=== PATIENT | male | born 1970 | race Caucasian/White ===

== ENCOUNTER 2017-04-01 14:34 | Outpatient (RCR) | payer BC ==
[~2017-04-01] VITALS: Ht 172.7 cm; Wt 95.9 kg
[~2017-04-01 14:34] MED LIST: AMARYL PO; AMITRIPTYLINE100 M3 PO; ASPIRIN E.C. 8181 MG PO; FLEXERIL 1010 MG/TAB PO; GLUCOPHAGE1000 MG PO; GLUCOPHAGE500 MG/TAB PO; LISINOPRIL5 MG PO; LYRICA 50MG CAP50 MG PO; METOCLOPRAMIDE10 M2 PO; NORCO 325 MG-51 TA1 PO; ZITHROMAX Z PA250 MG PO; ZYRTEC10 M3 PO
[2017-04-01] MEDS ORDERED: AMLODIPINE BESYL5 MG PO (15:30)
[2017-04-01] MEDS ORDERED: GLIMEPIRIDE4 MG PO (15:30)
[2017-04-01] MEDS ORDERED: TRULICITY1.5 MG/0.5 SC (15:31)
[2017-04-01] MEDS ORDERED: GABAPENTIN TAB600 MG PO (15:31)
[2017-04-01] MEDS ORDERED: VENLAFAXINE HCL75 M2 PO ×2 (15:31→15:33)
[2017-04-01] MEDS ORDERED: LANTUS PEN100 U/ML SQ (15:34)
[2017-04-01] MEDS ORDERED: GLUCOPHAGE PO (15:34)
[2017-04-01] MEDS ORDERED: FENOFIBRATE145 MG PO (15:34)
[2017-04-01] MEDS ORDERED: [UNRECOGNIZED DRUG - SUPPLY] MC (15:34)
[2017-04-01] MEDS ORDERED: CYMBALTA60 M1 PO (15:36)
[2017-04-01] MEDS ORDERED: LISINOPRIL10 MG PO (15:36)
[2017-04-01] MEDS ORDERED: AUGMENTIN 875-1 EAC1 PO (15:37)
[2017-04-01 15:43] VITALS: BP 115/76
[2017-04-03 14:20] VITALS: BP 126/92
[2017-04-06 19:05] VITALS: BP 126/84
[2017-04-08 21:12] VITALS: BP 122/82
[2017-04-20 15:26] VITALS: BP 132/90
== END 2017-06-30 | disposition home or self-care (01) ==
LOC: AMSURD
DX: E11.69 Type 2 diabetes mellitus with other specified complication (principal); M86.8X7 Other osteomyelitis, ankle and foot; E11.42 Type 2 diabetes mellitus with diabetic polyneuropathy; I10 Essential (primary) hypertension

== ENCOUNTER 2017-04-24 16:57 | Outpatient (RCR) | payer BC ==
[~2017-04-24] VITALS: Ht 172.7 cm; Wt 95.9 kg
[2017-04-24 16:30] VITALS: BP 122/80
--- NOTE | 2017-04-24 16:45 | NUR ---
REMOVED SOILED DRESSING UPON ARRIVAL. MINIMAL DRY SEROSANGUINEOUS DRAINAGE NOTED TO DRESSING. APPLIED SERILE WATER TO REMOVE. WOUND BED NOTED TO HAVE GRANULATION TISSUE, SURROUNDING TISSUE DRY, LIGHT PINK, NO ACTIVE DRAINAGE NOTED. INSERTED WET 2X2 BETWEEN SKIN FLAPS TOUCHING ALL WOUND EDGES. APPLIED WET 4X4 TO TOP OF SKIN FLAPS THEN TOPPED WITH DRY 4X4'S AND WRAPPED WITH 4" STERILE GUAZE WRAP.
[~2017-04-24 16:57] MED LIST changes: +AMLODIPINE BESYL5 MG PO; +AUGMENTIN 875-1 EAC1 PO; +CYMBALTA60 M1 PO; +FENOFIBRATE145 MG PO; +GABAPENTIN TAB600 MG PO; +GLIMEPIRIDE4 MG PO; +GLUCOPHAGE PO; +LANTUS PEN100 U/ML SQ; +LISINOPRIL10 MG PO; +TRULICITY1.5 MG/0.5 SC; +VENLAFAXINE HCL75 M2 PO; +[UNRECOGNIZED DRUG - SUPPLY] MC
[2017-04-25 21:30] VITALS: BP 127/78
--- NOTE | 2017-04-25 21:58 | NUR ---
PATIENT ARRIVES TO ROOM 101 FOR DRESSING CHANGE TO LEFT GREAT TOE SURGICAL INCISION. OLD DRESSING REMOVED WITH STERILE WATER WITH MINIMAL SEROSANGUINEOUS DRAINAGE. GRANULATION TISSUE NOTED TO WOUND BED. SURROUNDING TISSUE WITHOUT DRAINAGE, DRY, AND PINK. 2X2 GAUZE PAD MOISTENED BY STERILE WATER AND APPLIED WITH STERILE COTTON TIPPED APPLICATOR, COVERING WOUND BED. WET 2X2 GAUZE APPLIED TO TOP OF SKIN FLAPS. DRY 4X4 GAUZE APPLIED AND WRAPPED WITH 4" STERILE GAUZE WRAP, SECURED WITH PAPER TAPE. PATIENT TOLERATED PROCEDURE WELL.
[2017-04-26 21:42] VITALS: BP 134/89
--- NOTE | 2017-04-26 21:50 | NUR ---
PATIENT AMULATORY TO ROOM 101 FOR OUTPATIENT DRESSING CHANGE TO LEFT GREAT TO SURGICAL INSICION. OLD DRESSING REMOVED WITH STERILE WATER, MINIMAL SEROSANGUINEOUS DRAINAGE NOTED. GRANULATION TISSUE NOTED TO WOUND BED, SURROUNDING TISSUE PINK AND DRY. 2X2 GAUZE MOISTENED BY STERILE WATER AND APPLIED WITH STERILE COTTON TIPPED APPLICATOR, COVERING WOUND BED. WET 2X2 GAUZE APPLIED TO TOP OF SKIN FLAPS AND THEN WET 4X4 APPLIED ON TOP. DRY 4X4 GAUZE APPLIED AND WRAPPED WITH 4" STERILE GAUZE, SECURED WITH PAPER TAPE. PATIENT TOLERATED PROCEDURE WELL.
[2017-04-27 18:30] VITALS: BP 137/96
--- NOTE | 2017-04-27 18:45 | NUR ---
DRESSING TO LEFT GREAT TOE DONE. OLD DRESSING SOAKED WITH STERILE SALINE TO REMOVE. MODERATE AMOUNT OF SEROSANGUINEOUS DRAINAGE PRESENT ON OLD DRESSING. THERE IS A SMALL AMOUNT OF GREENISH YELLOW COLORED PURULENT DRAINAGE NOTED ON PART OF DRESSING REMOVED. PUNGENT ODOR NOTED WHEN REMOVING OLD DRESSING. WOUND BED WHITE APPEARS TO BE GRANULATION TISSUE. SURROUNDING SKIN PINK AND INTACT BUT DRY. CLEANSED WOUND WITH STERILE SALINE. WET 2X2 GAUZE INSERTED WITH Q TIP INTO WOUND. APPLIED WET 2X2 GAUZE ON TOP OF WOUND AND THEN FOLDED UP WET 4X4. APPLIED DRY 4X4'S TO AREA AND THEN SECURED DRESSING WITH GAUZE WRAP. PATIENT TOLERATED WELL.
--- NOTE | 2017-04-30 16:05 | NUR ---
Spoke with Dr. Renetta Cullen nurse, who reports that there are no new orders or order changes from 04/23/17 order. States that pt has not been in contact with their office since visit on 04/23/17. Inform that pt has not been seen as outpatient for dressing changes since 04/27/17.
[2017-04-30 19:30] VITALS: BP 166/97
--- NOTE | 2017-04-30 19:30 | NUR ---
PATIENT ARRIVES FOR WET TO DRY DRESSING CHANGE. HE REPORTS NOT COMING IN DAILY OF LATE DUE TO THE WEATHER. C/O DISCOMFORT TO FOOT THAT RADIATES UP LEG. HE ALSO HAS SEVERAL KLEENEX PLACED OVER #3 TOE OF LEFT FOOT THAT APPEARS TO BE SATURATED WITH BRIGHT RED DRIED BLOOD. PATIENT WAS TRIMMING HIS TOENAILS WITH SCISSORS AND CLIPPED AN AREA OF SKIN OFF THE TIP OF HIS TOE.
--- NOTE | 2017-04-30 20:00 | NUR ---
OLD GAUZE DRESSING REMOVED FROM LT FOOT AND #3 TOE. NO ACTIVE BLEEDING NOTED TO #3 TOE. FOUL ODOR NOTED TO HALLUX STUMP OF LEFT FOOT. SLOUGH NOTED TO WOUND BED. SCANT AMOUNT OF YELLOW DRAINAGE TO FIRST AND SECOND LAYER OF GAUZE FROM WOUND SITE. WOUNDS CLEANSED WITH STERILE WATER, ALONG WITH SKIN BETWEEN TOES. SKIN IS VERY DRY AND FLAKY. WET TO DRY DRESSING PLACED AND SECURED WITH GAUZE WRAP. FABRIC BANDAID PLACED TO #3 TOE.
[2017-05-02 18:05] VITALS: BP 137/99
[2017-05-03 20:03] VITALS: BP 138/83
[2017-05-04 20:20] VITALS: BP 120/86
--- NOTE | 2017-05-04 20:40 | NUR ---
PATIENT AMBULATORY TO ROOM 101 FOR OUTPATIENT DRESSING CHANGE TO LEFT GREAT TOE SURGICALL INSICION. OLD DRESSING REMOVED WITH STERILE WATER, MINIMAL SEROSANGUINEOUS DRAINAGE NOTED. GRANULATION TISSUE NOTED TO WOUND BED, SURROUNDING TISSUE PINK AND DRY. 2X2 GAUZE MOISTENED BY STERILE WATER AND APPLIED WITH STERILE COTTON TIPPED APPLICATOR, COVERING WOUND BED. DRY 4X4 GAUZE PAD APPLIED TO TOP OF WET DRESSING AND STERILE 3 INCH GAUZE WRAPPED AROUND AND SECURED WITH PAPER TAPE. PATIENT TOLERATED PROCEDURE WELL.
[2017-05-06 17:36] VITALS: BP 136/85
--- NOTE | 2017-05-06 17:40 | NUR ---
UPON FIRST INSPECTION OF L LEG, PRIOR TO REMOVING DRESSING, NOTE THAT PT L LEG, MID-CALF TO ANKLE, IS REDDENED AND SWOLLEN. SOILED DRESSING HAS DRIED SEROUS DRAINAGE TO OUTER DRESSING. REMOVE DRESSING, NOTE OPEN AREA REMAINS TO MEDIAL EDGE OF L GREAT TOE STUMP, STUMP IS RED AND EDEMATOUS, NO ACTIVE DRAINAGE NOTED. SLOUGH NOTED TO THIS OPEN AREA, CLEANSED WITH NS AND Q-TIP. PLACED NS WET 2X2 INTO WOUND BED AND PLACED ANOTHER ALONG CLOSED WOUND EDGES, STACKED DRY 4X4'S ON TOP THEN WRAPPED WITH 4" BANDAGE.
--- NOTE | 2017-05-06 18:12 | NUR ---
PT REPORTS THAT HE IS GOING TO BE OUT OF TOWN FOR THE WEEKEND AND REQUESTS SUPPLIES TO CHANGE DRESSING. SUPPLIES GIVEN FOR SINGLE DRESSING CHANGE, PT INSTRUCTED ON PROCEDURE. REPORTS THAT HE WILL BE IN FOR DRESSING CHANGE THURSDAY AFTERNOON, THURSDAY MORNING THEN PLANS TO CHANGE OWN DRESSING EARLY THURSDAY AND RESUME DRESSING CHANGES IN THIS FACILITY ON Thursday05/11/17.
[2017-05-07 17:45] VITALS: BP 128/93
--- NOTE | 2017-05-07 17:45 | NUR ---
Pt denies any discomfort but does state he had has some pus like drainage lately from wound - saw last and restarted on antibiotic and has f/u appt w/ next Thursday. Old dressing removed and noted to have some dried yellow drainage medial edge of wound. Noted to have some redness proximal to wound. Pt denies any discomfort - has neuropathy. Pt requests NS be flushed into wound - pt tolerated well. NS moistened drsg applied and packed into wound and topped w/ dry 4 x 4 and secured w/ jeremiah. Pt tolerated well. Wound 3.5 cm in length, 0.5cm depth at medial edge and depth 0.8 cm at lateral edge.
[2017-05-08 13:34] VITALS: BP 135/95
--- NOTE | 2017-05-08 13:39 | NUR ---
PATIENT STATES HE IS GOING OUT OF TOWN FOR THE WEEKEND AND IS UNCERTAIN IF HE HAS APPROPRIATE SUPPLIES FOR THE DRESSING CHAGNES, HE IS GIVEN GAUZE 4X4, STERILE NS, Q-TIPS, KERLIX, COBAN AND TAPE, HE STAES HIS SISTER WILL HELP HIM, HE IS ALSO GIVEN GLOVES, STATES HE PLANS TO RETURN HERE ON THURSDAY
[2017-05-11 20:45] VITALS: BP 131/83
--- NOTE | 2017-05-11 20:56 | NUR ---
PATIENT AMBULATORY TO ROOM 101 FOR OUTPATIENT DRESSING CHANGE TO LEFT GREAT TOE SURGICAL INCISION. OLD DRESSING REMOVED WITH STERILE WATER, MINIMAL SEROUS DRAINAGE NOTED TO DRESSING. GRANULATION TISSUE AND SLOUGH NOTED TO WOUND BED, SURROUNDING TISSUE SLIGHTLY REDDENED AND SCABS. 2X2 GAUZE PAD MOISTENED BY STERILE WATER AND APPLIED WITH COTTON TIPPED APPLICATOR, COVERING WOUND BED. DRY 4X4 GUAZE PAD APPLIED TO TOP AND WRAPPED WITH SOFT BLACK, SECURED WITH PAPER TAPE. PATIENT TOLERATED PROCEDURE WELL. LEFT ANKLE NOTED TO BE REDDENED AND EDEMATOUS. PATIENT STATES HE HAS A DOCTORS APPOINTMENT TOMORROW SO HE WILL NOT BE COMING IN FOR A DRESSING CHANGE.
[2017-05-13 18:11] VITALS: BP 117/80
[2017-05-14 18:45] VITALS: BP 126/84
[2017-05-15 18:41] VITALS: BP 134/88
[2017-05-16 19:23] VITALS: BP 147/91
--- NOTE | 2017-05-16 19:45 | NUR ---
Pt reports that "just don't feel well today", "just sleeping all day" "had son drive me in as I"m dizzy." Pt reports that he's been eating grapefruit and squirt (which has grapefruit in it). Pt noted that he had developed some raised bumps on his arms, hands and face - slight itching but no other allergy type symptoms. Afebrile. Resp unlabored. Pt states he may try some benadryl. Pt encouraged to call his PCP or come to ER if he had concerns or further questions as his status is outpt and Dr can not see him in that setting at this time. Pt verbalizes understanding. Pt instructed that grapefruit juice/grapefruit can increase or decrease med absorption and could cause reaction to the med. Pt verbalizes he will stop the grapefruit for a while. Discussed w/ pt new bright redness to left great amputated toe proximally and increased swelling since seen last week. Pt in agreement. Pt encouraged to contact Dr. Saul but pt reports I still won't be able to see him before next as that's the earliest appt I could get. Pt reports that he is finished w/ the levaquin on Thursday. Reports dizziness too - encouraged to follow up w/ PCP or ER if has concerns. Pt aware that dizziness could be a normal side effect of the med.
--- NOTE | 2017-05-16 19:55 | NUR ---
Pt leaves ambulatory w/ steady gait, deciding against ER at this time.
[2017-05-19 18:35] VITALS: BP 143/103
[2017-05-19 18:49] VITALS: BP 125/80
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
[2017-05-20 21:21] VITALS: BP 121/69
[2017-05-22 20:35] VITALS: BP 133/90
[2017-05-22 20:46] VITALS: BP 116/64
--- NOTE | 2017-05-31 17:28 | NUR ---
PT ARRIVES FOR WET TO DRY DRESSING CHANGE AFTER MISSING MANY OUTPATIENT APPOINTMENTS, PT STATES HE WAS "SUPPOSED TO GET THE BALL OF HIS FOOT AND POSSIBLY UP TO HIS KNEE AMPUTATED LAST WEEK BUT IT IS RESCHEDULED FOR THURSDAY NOW," PT GOES ON TO STATE, "I DIDN'T SEE THE POINT OF COMING IN IF THEY WERE CUTTING IT OFF ANYWAYS," PT STILL HAS PREVIOUS DRESSING FROM [facility] ON FROM LAST VISIT, FOOT IS VERY MALODOROUS, UNABLE TO ACHIEVE ANY TYPE OF PACKING TO GREAT TOE IT IS CLOSED TOGETHER NOW AND YELLOW IN COLOR, LARGE AMOUNTS OF BLACK MATERIAL REMOVED FROM BETWEEN EACH TOE, PT DENIES PAIN AT SITE, PT'S FOOT SOAKED IN WARM SOAPY WATER AND CLEANSED, NEW DRESSING APPLIED, PT STATES HE "MAY RETURN AND MAY NOT" PRIOR TO SURGERY THIS WEEK, PT EDUCATED ON IMPORTANCE OF KEEPING THE FOOT CLEAN STILL REGARDLESS OF SURGERY
[2017-05-31 17:33] VITALS: BP 149/60
[2017-06-06 15:00] VITALS: BP 127/86
--- NOTE | 2017-06-09 14:15 | NUR ---
Contacted Dr. Saul's office and spoke with nurse to request new dressing change orders. Nurse states that patient arrived for surgery on 06/03/17, however the surgical procedure was not performed because Dr. Smith felt that the wound was healed, and surgery was not necessary. Informed nurse that the patient has not been compliant with daily dressing change orders. Patient will sometimes wait 6-9 days in between dressing changes. Nurse states that patient has a wound on each foot. Nurse states that patient was told that he is to do daily dry dressing changes. Nurse states that she will speak to Dr. Saul and call back with new orders later today or tomorrow 06/10/17.
--- NOTE | 2017-06-10 13:59 | NUR ---
Spoke with Nadege, nurse at Dr. Saul's office. States that patient was told he is to apply a dry dressing to L great toe wound daily at home. Patient will no longer be coming in for outpatient dressing changes. Nadege states that they plan to call the patient and schedule another follow up visit.
== END 2017-07-23 | disposition home or self-care (01) ==
LOC: AMSURD
DX: Z48.01 Encounter for change or removal of surgical wound dressing (principal); Z89.412 Acquired absence of left great toe
CPT/HCPCS: A6402

== ENCOUNTER 2017-11-08 18:21 | Emergency (ER) | payer BC ==
[~2017-11-08] VITALS: Ht 175.3 cm; Wt 100.0 kg
[2017-11-08] MEDS ORDERED: LANTUS SOLOS100 U/ML SQ (18:46)
[2017-11-08] MEDS ORDERED: REVATIO20 MG PO (18:47)
[2017-11-08] MEDS ORDERED: PRILOSEC 20MG20 MG PO (18:47)
[2017-11-08 19:16] LABS: EOS # 0.1 (0.04-0.40); HEMATOCRIT 35.4 % (42.0-52.0); HEMOGLOBIN 12.3 g/dL (13.5-18.0); LYMPH# 1.8 (1.50-4.00); MEAN CELL VOLUME 92 fl (78-100); MEAN CORPUSCULAR HEMOGLOBIN 32 pg (27-31); MEAN CORPUSCULAR HGB CONC 35 g/dL (33-37); PLATELET COUNT 242 K/mm3 (130-400); RED BLOOD COUNT 3.85 M/mm3 (4.20-5.60); RED CELL DISTRIBUTION WIDTH 12.1 % (11.5-14.5); WHITE BLOOD COUNT 12.4 K/mm3 (4.8-10.8)
[2017-11-08 19:17] LABS: POTASSIUM 4.2 mmol/L (3.6-5.0)
[2017-11-08 19:18] LABS: NEU # 9.4 (1.40-6.50)
[2017-11-08] MEDS ORDERED: TRAMADOL 50 MG TAB PO (21:21)
[2017-11-08] MEDS ORDERED: CLEOCIN HCL150 M1 PO (21:21)
[2017-11-08 21:47] VITALS: BP 147/84
== END 2017-11-08 21:47 | disposition home or self-care (01) ==
LOC: ED 18:21
PROVIDERS: Family Medicine
DX: L03.031 Cellulitis of right toe (principal); S80.11XA Contusion of right lower leg, initial encounter; S80.811A Abrasion, right lower leg, initial encounter; T24.212A Burn of second degree of left thigh, initial encounter; W18.30XA Fall on same level, unspecified, initial encounter; E11.65 Type 2 diabetes mellitus with hyperglycemia; I10 Essential (primary) hypertension; L98.9 Disorder of the skin and subcutaneous tissue, unspecified; Z79.4 Long term (current) use of insulin; Z79.899 Other long term (current) drug therapy; T79.9XXA Unspecified early complication of trauma, initial encounter; Z89.412 Acquired absence of left great toe; E11.42 Type 2 diabetes mellitus with diabetic polyneuropathy
CPT/HCPCS: J1815

== ENCOUNTER 2018-05-08 05:43 | Inpatient (IN) | payer BC ==
[~2018-05-08] VITALS: Ht 175.3 cm; Wt 103.6 kg
[~2018-05-08 05:43] MED LIST changes: +CLEOCIN HCL150 M1 PO; +LANTUS SOLOS100 U/ML SQ; +PRILOSEC 20MG20 MG PO; +REVATIO20 MG PO; +TRAMADOL 50 MG TAB PO
[2018-05-08] MEDS ORDERED: BENZONATATE100 M2 PO (06:02)
[2018-05-08] MEDS ORDERED: GUAIFEN-CODEINE5 ML PO (06:02)
[2018-05-08] MEDS ORDERED: VOLTAREN 75 DR75 MG PO (06:03)
[2018-05-08] MEDS ORDERED: TRESIBA FL200 UNIT/1 SQ (06:04)
[2018-05-08] MEDS ORDERED: PRAVACHOL 40MG40 MG PO (06:05)
[2018-05-08] MEDS ORDERED: ZYRTEC ALLERGY10 MG PO (06:07)
[2018-05-08 06:48] LABS: HEMATOCRIT 34.3 % (42.0-52.0); HEMOGLOBIN 11.4 g/dL (13.5-18.0); MEAN CELL VOLUME 93 fl (78-100); MEAN CORPUSCULAR HEMOGLOBIN 31 pg (27-31); MEAN CORPUSCULAR HGB CONC 33 g/dL (33-37); MEAN PLATELET VOLUME 9.7 fl (7.4-10.4); PLATELET COUNT 248 K/mm3 (130-400); RED BLOOD COUNT 3.71 M/mm3 (4.20-5.60); RED CELL DISTRIBUTION WIDTH 13.7 % (11.5-14.5); WHITE BLOOD COUNT 15.6 K/mm3 (4.8-10.8)
[2018-05-08 06:51] LABS: CALCIUM 8.3 mg/dL (8.4-10.2); POTASSIUM 4.4 mmol/L (3.6-5.0)
[2018-05-08 07:01] LABS: LYMPHOCYTE 15 % (20-51); MONOCYTE 7 % (3-10); NEUTROPHILS 77 % (42-75)
[2018-05-08] MEDS ORDERED: VIRTUSSIN A/C118 ML PO (08:14)
[2018-05-08] MEDS ORDERED: POTASSIUM600 MG PO (08:17)
[2018-05-08] MEDS ORDERED: TRULICITY1.5 MG/0.5 SC (08:19)
[2018-05-08 11:00] VITALS: BP 118/75
[2018-05-08 11:05] VITALS: BP 126/71
[2018-05-08 14:50] VITALS: BP 106/64
[2018-05-08 18:23] VITALS: BP 144/62
[2018-05-09] VITALS (7 sets, daily range): BP systolic 116–150; BP diastolic 61–86
[2018-05-10 03:38] VITALS: BP 127/72
[2018-05-10 07:15] VITALS: BP 127/78
[2018-05-10 10:50] VITALS: BP 152/79
[2018-05-10 14:50] VITALS: BP 135/75
[2018-05-10 18:53] VITALS: BP 160/81
[2018-05-10 23:45] VITALS: BP 154/79
[2018-05-11 02:57] VITALS: BP 150/80
[2018-05-11 06:23] VITALS: BP 149/85
[2018-05-11 11:30] VITALS: BP 149/82
[2018-05-11 12:33] LABS: BASO # 0.1 (0.02-0.10); EOS % 0.1 % (0.0-4.0); HEMATOCRIT 32.7 % (42.0-52.0); HEMOGLOBIN 10.8 g/dL (13.5-18.0); LYMPH# 2.9 (1.50-4.00); MEAN CELL VOLUME 91 fl (78-100); MEAN CORPUSCULAR HEMOGLOBIN 30 pg (27-31); MEAN CORPUSCULAR HGB CONC 33 g/dL (33-37); MEAN PLATELET VOLUME 9.3 fl (7.4-10.4); PLATELET COUNT 321 K/mm3 (130-400); RED BLOOD COUNT 3.59 M/mm3 (4.20-5.60); RED CELL DISTRIBUTION WIDTH 13.1 % (11.5-14.5); WHITE BLOOD COUNT 16.2 K/mm3 (4.8-10.8)
[2018-05-11 12:37] LABS: MONO # 1.7 (0.20-0.80); NEU # 10.1 (1.40-6.50)
[2018-05-11 12:52] LABS: ALBUMIN 3.4 g/dL (3.5-5.0); CALCIUM 8.7 mg/dL (8.4-10.2); POTASSIUM 4.1 mmol/L (3.6-5.0); TOTAL BILIRUBIN 0.3 mg/dL (0.2-1.3); TOTAL PROTEIN 6.6 g/dL (6.3-8.2)
[2018-05-11 15:00] VITALS: BP 150/91
[2018-05-11 19:00] VITALS: BP 167/92
[2018-05-11 23:05] VITALS: BP 158/85
[2018-05-12 03:00] VITALS: BP 138/73
[2018-05-12 05:51] LABS: HEMATOCRIT 33.8 % (42.0-52.0); HEMOGLOBIN 11.2 g/dL (13.5-18.0); MEAN CELL VOLUME 91 fl (78-100); MEAN CORPUSCULAR HEMOGLOBIN 30 pg (27-31); MEAN CORPUSCULAR HGB CONC 33 g/dL (33-37); MEAN PLATELET VOLUME 9.3 fl (7.4-10.4); PLATELET COUNT 336 K/mm3 (130-400); RED BLOOD COUNT 3.73 M/mm3 (4.20-5.60); RED CELL DISTRIBUTION WIDTH 13.1 % (11.5-14.5); WHITE BLOOD COUNT 13.6 K/mm3 (4.8-10.8)
[2018-05-12 06:20] VITALS: BP 160/86
[2018-05-12 07:17] LABS: BAND 1 % (0-10); LYMPHOCYTE 18 % (20-51); METAMYELOCYTE 6 % (0-0); MONOCYTE 6 % (3-10); MYELOCYTE 6 % (0-0); NEUTROPHILS 63 % (42-75); NUCLEATED RED BLOOD CELL 1 (0-6); POLYCHROMASIA 1+
[2018-05-12 10:50] VITALS: BP 125/84
[2018-05-12 15:05] VITALS: BP 165/87
[2018-05-12 18:00] VITALS: BP 145/88
[2018-05-12 23:20] VITALS: BP 144/87
[2018-05-13 03:18] VITALS: BP 158/78
[2018-05-13 06:25] VITALS: BP 147/83
[2018-05-13 07:09] LABS: HEMATOCRIT 34.2 % (42.0-52.0); HEMOGLOBIN 11.2 g/dL (13.5-18.0); MEAN CELL VOLUME 91 fl (78-100); MEAN CORPUSCULAR HEMOGLOBIN 30 pg (27-31); MEAN CORPUSCULAR HGB CONC 33 g/dL (33-37); MEAN PLATELET VOLUME 9.2 fl (7.4-10.4); PLATELET COUNT 349 K/mm3 (130-400); RED BLOOD COUNT 3.75 M/mm3 (4.20-5.60); RED CELL DISTRIBUTION WIDTH 13.1 % (11.5-14.5); WHITE BLOOD COUNT 13.9 K/mm3 (4.8-10.8)
[2018-05-13 07:39] LABS: CALCIUM 8.5 mg/dL (8.4-10.2); POTASSIUM 3.8 mmol/L (3.6-5.0)
[2018-05-13 08:20] LABS: LYMPHOCYTE 36 % (20-51); METAMYELOCYTE 2 % (0-0); MONOCYTE 9 % (3-10); MYELOCYTE 1 % (0-0); NEUTROPHILS 52 % (42-75); NUCLEATED RED BLOOD CELL 1 (0-6)
[2018-05-13] MEDS ORDERED: IPRATROPIUM BROM3 M1 IH (11:08)
[2018-05-13] MEDS ORDERED: GOOD NEIGHBOR600 MG PO (11:10)
[2018-05-13] MEDS ORDERED: METFORMIN HCL1000 M1 PO (11:10)
[2018-05-13] MEDS ORDERED: NOVOLOG FLEX100 U/ML SQ (11:12)
[2018-05-13] MEDS ORDERED: TUSSIONEX PENN115 ML PO (11:13)
[2018-05-13] MEDS ORDERED: PREDNISONE20 M1 PO (11:13)
[2018-05-13 11:14] VITALS: BP 151/84
[2018-05-13] MEDS ORDERED: AUGMENTIN 875-1 EAC1 PO (11:14)
[2018-05-13] MEDS ORDERED: KLONOPIN 0.5MG0.5 MG PO (11:14)
[2018-05-13] MEDS ORDERED: PROAIR HFA0.09 MG/AC IH (11:16)
== END 2018-05-13 13:48 | disposition home or self-care (01) | DRG 194 ==
LOC: ED 05:43 → MED/SURG 07:47 → ED 07:47 → MED/SURG 05-13 13:48
PROVIDERS: Nurse Practitioner Primary Care; Physician Assistant; ADMIT Family Medicine
DX: J18.8 Other pneumonia, unspecified organism (principal); J45.901 Unspecified asthma with (acute) exacerbation; E11.9 Type 2 diabetes mellitus without complications; I10 Essential (primary) hypertension; E11.40 Type 2 diabetes mellitus with diabetic neuropathy, unspecified; E11.51 Type 2 diabetes mellitus with diabetic peripheral angiopathy without gangrene; Z87.891 Personal history of nicotine dependence; Z89.412 Acquired absence of left great toe; Z89.411 Acquired absence of right great toe; K21.9 Gastro-esophageal reflux disease without esophagitis; G47.33 Obstructive sleep apnea (adult) (pediatric); Z79.84 Long term (current) use of oral hypoglycemic drugs
CPT/HCPCS: A4216; J0696; J1650; J1815; J2920; J3490; J7050; J7512; Q9967

== ENCOUNTER → 2018-07-02 | Outpatient (CLI) | payer SELFPAY ==
[~2018-07-02] MED LIST changes: +BENZONATATE100 M2 PO; +GOOD NEIGHBOR600 MG PO; +GUAIFEN-CODEINE5 ML PO; +IPRATROPIUM BROM3 M1 IH; +KLONOPIN 0.5MG0.5 MG PO; +METFORMIN HCL1000 M1 PO; +NOVOLOG FLEX100 U/ML SQ; +POTASSIUM600 MG PO; +PRAVACHOL 40MG40 MG PO; +PREDNISONE20 M1 PO; +PROAIR HFA0.09 MG/AC IH; +TRESIBA FL200 UNIT/1 SQ; +TUSSIONEX PENN115 ML PO; +VIRTUSSIN A/C118 ML PO; +VOLTAREN 75 DR75 MG PO; +ZYRTEC ALLERGY10 MG PO
[2018-07-02 13:11] LABS: EOS % 1.4 % (0.0-4.0); HEMATOCRIT 41.2 % (42.0-52.0); HEMOGLOBIN 13.7 g/dL (13.5-18.0); MEAN CELL VOLUME 88 fl (78-100); MEAN CORPUSCULAR HEMOGLOBIN 29 pg (27-31); MEAN CORPUSCULAR HGB CONC 33 g/dL (33-37); MEAN PLATELET VOLUME 9.1 fl (7.4-10.4); PLATELET COUNT 321 K/mm3 (130-400); RED BLOOD COUNT 4.67 M/mm3 (4.20-5.60); RED CELL DISTRIBUTION WIDTH 13.8 % (11.5-14.5)
[2018-07-02 13:12] LABS: EOS # 0.1 (0.04-0.40); MONO # 0.6 (0.20-0.80); NEU # 4.3 (1.40-6.50)
[2018-07-02 14:13] LABS: ERYTHROCYTE SEDIMENTATION RATE 47 mm/hr (0-15)
== END ==
LOC: LAB 12:55
PROVIDERS: Family Medicine
DX: E13.621 Other specified diabetes mellitus with foot ulcer (principal); L97.529 Non-pressure chronic ulcer of other part of left foot with unspecified severity

== ENCOUNTER → 2018-08-31 | Outpatient (CLI) | payer SELFPAY | LOC: LAB 15:20 → RAD 15:20 | DX: E11.621 Type 2 diabetes mellitus with foot ulcer (principal); E11.42 Type 2 diabetes mellitus with diabetic polyneuropathy; Z89.422 Acquired absence of other left toe(s) ==

== ENCOUNTER 2018-09-13 17:56 | Emergency (ER) | payer SELFPAY ==
[~2018-09-13] VITALS: Ht 175.3 cm; Wt 93.2 kg
[~2018-09-13 17:56] MED LIST changes: -BACTRIM DS TAB1 EACH PO; -LEVOFLOXACIN750 MG PO; -METRONIDAZOLE500 M1 PO
[2018-09-13] MEDS ORDERED: LEVOFLOXACIN750 MG PO (18:08)
[2018-09-13] MEDS ORDERED: METRONIDAZOLE500 M1 PO (18:08)
[2018-09-13] MEDS ORDERED: BACTRIM DS TAB1 EACH PO (18:56)
[2018-09-13 20:14] VITALS: BP 145/92
== END 2018-09-13 20:14 | disposition short-term general hospital (02) ==
LOC: ED 17:56
DX: L97.529 Non-pressure chronic ulcer of other part of left foot with unspecified severity (principal); N17.9 Acute kidney failure, unspecified; E11.9 Type 2 diabetes mellitus without complications; I10 Essential (primary) hypertension; K21.9 Gastro-esophageal reflux disease without esophagitis; Z79.4 Long term (current) use of insulin; Z87.891 Personal history of nicotine dependence; Z88.6 Allergy status to analgesic agent; Z89.412 Acquired absence of left great toe; Z89.411 Acquired absence of right great toe
CPT/HCPCS: J7030

== ENCOUNTER → 2018-09-13 | Outpatient (CLI) | payer SELFPAY ==
[~2018-09-13] MED LIST changes: +BACTRIM DS TAB1 EACH PO; +LEVOFLOXACIN750 MG PO; +METRONIDAZOLE500 M1 PO
[2018-09-13 17:18] LABS: EOS % 0.2 % (0.0-4.0); HEMATOCRIT 37.7 % (42.0-52.0); HEMOGLOBIN 12.7 g/dL (13.5-18.0); LYMPH# 2.4 (1.50-4.00); MEAN CELL VOLUME 87 fl (78-100); MEAN CORPUSCULAR HEMOGLOBIN 29 pg (27-31); MEAN CORPUSCULAR HGB CONC 34 g/dL (33-37); MEAN PLATELET VOLUME 9.1 fl (7.4-10.4); MONO # 0.6 (0.20-0.80); NEU # 6.5 (1.40-6.50); PLATELET COUNT 375 K/mm3 (130-400); RED BLOOD COUNT 4.35 M/mm3 (4.20-5.60); RED CELL DISTRIBUTION WIDTH 13.8 % (11.5-14.5); WHITE BLOOD COUNT 9.5 K/mm3 (4.8-10.8)
[2018-09-13 17:23] LABS: ALBUMIN 3.7 g/dL (3.5-5.0); POTASSIUM 5.4 mmol/L (3.5-5.1)
[2018-09-13 17:26] LABS: TOTAL PROTEIN 7.6 g/dL (6.4-8.3)
[2018-09-13 17:28] LABS: TOTAL BILIRUBIN 0.2 mg/dL (0.2-1.2)
[2018-09-13 19:34] LABS: ERYTHROCYTE SEDIMENTATION RATE 88 mm/hr (0-15)
== END ==
LOC: LAB 16:31
PROVIDERS: Internal Medicine
DX: E11.42 Type 2 diabetes mellitus with diabetic polyneuropathy (principal); L97.529 Non-pressure chronic ulcer of other part of left foot with unspecified severity

== ENCOUNTER → 2018-09-20 | Outpatient (CLI) | payer SELFPAY ==
[2018-09-19 14:07] VITALS: BP 147/78
[~2018-09-20] MED LIST changes: +BACTRIM DS TAB1 EACH PO; +CEPHALEXIN500 M1 PO; +FLORASTOR 250 MG PO; +HUMALOG KWIKPEN SQ; +LEVOFLOXACIN750 MG PO; +METRONIDAZOLE500 M1 PO; +NORCO 7.5-3251 EACH PO; +PROTONIX TR40 M1 PO; +TOUJEO SOL300 UNIT/1 SQ
[2018-09-20 19:42] LABS: EOS # 0.4 (0.04-0.40); EOS % 4.5 % (0.0-4.0); HEMATOCRIT 31.7 % (42.0-52.0); HEMOGLOBIN 10.3 g/dL (13.5-18.0); LYMPH# 2.4 (1.50-4.00); MEAN CELL VOLUME 89 fl (78-100); MEAN CORPUSCULAR HEMOGLOBIN 29 pg (27-31); MEAN CORPUSCULAR HGB CONC 33 g/dL (33-37); MEAN PLATELET VOLUME 9.2 fl (7.4-10.4); MONO # 0.9 (0.20-0.80); NEU # 5.8 (1.40-6.50); PLATELET COUNT 304 K/mm3 (130-400); RED BLOOD COUNT 3.58 M/mm3 (4.20-5.60); RED CELL DISTRIBUTION WIDTH 14.2 % (11.5-14.5); WHITE BLOOD COUNT 9.6 K/mm3 (4.8-10.8)
[2018-09-20 19:46] LABS: ALBUMIN 3.3 g/dL (3.5-5.0); POTASSIUM 4.4 mmol/L (3.5-5.1)
[2018-09-20 19:47] LABS: CALCIUM 8.9 mg/dL (8.3-10.5)
[2018-09-20 19:48] LABS: TOTAL PROTEIN 7.2 g/dL (6.4-8.3)
[2018-09-20 19:50] LABS: TOTAL BILIRUBIN 0.3 mg/dL (0.2-1.2)
[2018-09-20 20:58] LABS: ERYTHROCYTE SEDIMENTATION RATE 135 mm/hr (0-15)
== END ==
LOC: LAB 18:16
PROVIDERS: Nurse Practitioner Primary Care
DX: M79.89 Other specified soft tissue disorders (principal)

== ENCOUNTER 2018-09-28 20:13 | Emergency (ER) | payer SELFPAY ==
[~2018-09-28] VITALS: Ht 172.7 cm; Wt 97.7 kg
[2018-09-28 21:17] LABS: EOS # 0.1 (0.04-0.40); HEMATOCRIT 27.1 % (42.0-52.0); HEMOGLOBIN 8.7 g/dL (13.5-18.0); LYMPH# 1.6 (1.50-4.00); MEAN CELL VOLUME 88 fl (78-100); MEAN CORPUSCULAR HEMOGLOBIN 28 pg (27-31); MEAN CORPUSCULAR HGB CONC 32 g/dL (33-37); MEAN PLATELET VOLUME 8.9 fl (7.4-10.4); MONO # 0.7 (0.20-0.80); PLATELET COUNT 362 K/mm3 (130-400); RED BLOOD COUNT 3.07 M/mm3 (4.20-5.60); RED CELL DISTRIBUTION WIDTH 14.2 % (11.5-14.5); WHITE BLOOD COUNT 12.1 K/mm3 (4.8-10.8)
[2018-09-28 21:22] LABS: NEU # 9.6 (1.40-6.50)
[2018-09-28 21:30] LABS: ALBUMIN 3.1 g/dL (3.5-5.0); POTASSIUM 4.9 mmol/L (3.5-5.1)
[2018-09-28 21:31] LABS: CALCIUM 8.9 mg/dL (8.3-10.5)
[2018-09-28 21:32] LABS: TOTAL PROTEIN 7.1 g/dL (6.4-8.3)
[2018-09-28 21:34] LABS: TOTAL BILIRUBIN 0.3 mg/dL (0.2-1.2)
[2018-09-29 01:10] VITALS: BP 125/77
== END 2018-09-29 01:10 | disposition short-term general hospital (02) ==
LOC: ED 20:13
PROVIDERS: Nurse Practitioner Family
DX: J18.9 Pneumonia, unspecified organism (principal); R09.02 Hypoxemia; E11.65 Type 2 diabetes mellitus with hyperglycemia; Z79.4 Long term (current) use of insulin; Z87.891 Personal history of nicotine dependence; Z89.422 Acquired absence of other left toe(s)
CPT/HCPCS: J0295; J7030

== ENCOUNTER → 2018-10-11 | Outpatient (CLI) | payer OTHER ==
[2018-10-09 18:40] VITALS: BP 146/81
[~2018-10-11] MED LIST changes: +LASIX40 M1 PO; +OXYCODONE5 M1 PO; +PRAVACHOL 20MG20 MG PO
[2018-10-11 20:51] LABS: HEMATOCRIT 26.4 % (42.0-52.0); HEMOGLOBIN 8.3 g/dL (13.5-18.0); MEAN PLATELET VOLUME 9.4 fl (7.4-10.4); RED BLOOD COUNT 3.01 M/mm3 (4.20-5.60); RED CELL DISTRIBUTION WIDTH 14.4 % (11.5-14.5); WHITE BLOOD COUNT 9.3 K/mm3 (4.8-10.8)
[2018-10-11 20:54] LABS: ALBUMIN 3.2 g/dL (3.5-5.0)
[2018-10-11 20:55] LABS: POTASSIUM 4.3 mmol/L (3.5-5.1)
[2018-10-11 20:56] LABS: CALCIUM 9.2 mg/dL (8.3-10.5)
[2018-10-11 20:57] LABS: TOTAL PROTEIN 7.7 g/dL (6.4-8.3)
[2018-10-11 20:59] LABS: TOTAL BILIRUBIN 0.2 mg/dL (0.2-1.2)
[2018-10-11 21:02] LABS: DIRECT BILIRUBIN 0.1 mg/dL (0.0-0.5)
== END ==
LOC: LAB 18:10
PROVIDERS: Surgery
DX: M86.8X7 Other osteomyelitis, ankle and foot (principal); Z98.890 Other specified postprocedural states

== ENCOUNTER → 2018-10-18 | Outpatient (CLI) | payer OTHER ==
[2018-10-15 19:25] VITALS: BP 153/73
[~2018-10-18] MED LIST changes: +ACETAMINOPHEN-O1 TAB PO; +ALBUTEROL2.5 MG/3 M IH; +CUBICIN 500MG500 MG IV; +FLUTICASONE-SA1 EAC4 IH; +SANTYL30 GM TP
[2018-10-18 20:50] LABS: EOS # 0.4 (0.04-0.40); EOS % 2.9 % (0.0-4.0); HEMATOCRIT 24.4 % (42.0-52.0); MEAN CELL VOLUME 86 fl (78-100); MEAN CORPUSCULAR HEMOGLOBIN 27 pg (27-31); MEAN CORPUSCULAR HGB CONC 31 g/dL (33-37); MEAN PLATELET VOLUME 9.9 fl (7.4-10.4); MONO # 1.4 (0.20-0.80); NEU # 8.9 (1.40-6.50); PLATELET COUNT 338 K/mm3 (130-400); RED BLOOD COUNT 2.83 M/mm3 (4.20-5.60); RED CELL DISTRIBUTION WIDTH 14.5 % (11.5-14.5); WHITE BLOOD COUNT 12.7 K/mm3 (4.8-10.8)
[2018-10-18 20:51] LABS: HEMOGLOBIN 7.6 g/dL (13.5-18.0)
[2018-10-18 20:54] LABS: ALBUMIN 3.1 g/dL (3.5-5.0); POTASSIUM 4.3 mmol/L (3.5-5.1)
[2018-10-18 20:55] LABS: CALCIUM 8.9 mg/dL (8.3-10.5)
[2018-10-18 20:57] LABS: TOTAL PROTEIN 7.7 g/dL (6.4-8.3)
[2018-10-18 20:58] LABS: TOTAL BILIRUBIN 0.4 mg/dL (0.2-1.2)
[2018-10-18 22:14] LABS: ERYTHROCYTE SEDIMENTATION RATE > 130 mm/hr (0-15)
== END ==
LOC: LAB 17:19
PROVIDERS: Internal Medicine
DX: E11.621 Type 2 diabetes mellitus with foot ulcer (principal); L97.529 Non-pressure chronic ulcer of other part of left foot with unspecified severity; E11.42 Type 2 diabetes mellitus with diabetic polyneuropathy; E11.69 Type 2 diabetes mellitus with other specified complication; M86.9 Osteomyelitis, unspecified; D64.9 Anemia, unspecified

== ENCOUNTER 2018-10-20 17:15 | Outpatient (RCR) | payer OTHER ==
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
[2018-10-07 16:46] VITALS: BP 111/58
--- NOTE | 2018-10-08 11:15 | NUR ---
CALLED DR. GOLDSMITH'S NURSE AT [facility]; SPOKE TO OWEN STARKEY. UPDATE GIVEN ON PATIENT STATUS AND THAT THE WOUND VAC WAS CHANGED YESTERDAY CAUSING HIS SCHEDULE TO BE OFF; PATIENT TO LEAVE ON VACATION NEXT WEEK SO WILL DO WOUND VAC DRESSING CHANGE ON THURSDAY AND THURSDAY; THEN GET BACK ON TRACK WHEN HE RETURNS. ASKED FOR UPDATED ORDER FOR PRESSURE SETTING FOR THE WOUND VAC. RECEIVED UPDATED ORDER VIA FAX. NO FURTHER ORDERS RECEIVED.
[2018-10-08 15:39] VITALS: BP 147/86
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
--- NOTE | 2018-10-09 17:30 | NUR ---
Patient ambulates into facility. States that his wound vac has been alarming all day. States "I went out to eat today and it beeped the entire time." Took patient back to exam room. Removed shoe. Sock and PRAKASH wrap are soaked with drainage. Suction head and tubing is not connected to the dressing at all. Liquid drainage is collecting under clear plastic drape. Entire dressing is saturated and slides off left foot with very little effort. Skin is macerated, appears to have been wet for more than a short period of time. This nurse and Kelby Vera RN cleanse incision wound to left foot and reapply wound vac. Patient is extremely drowsy, falls asleep multiple times during dressing change. Oral temp of 100.3 noted, and verbalized to patient, who states "that's not a fever." Patient states that he is leaving for vacation this week and will have a written script to take with him to [place] for dressing changes at another facility. Patient is also self administering cubicin IV via PICC at home. Patient states that the company delivers him 8 days of pre mixed cubicin at a time. Extensive education provided. Patient verbalizes understanding. Ambulates out of facility with wound vac clean, dry, and intact to left foot amputation site.
[2018-10-09 18:40] VITALS: BP 146/81
--- NOTE | 2018-10-11 11:15 | NUR ---
Called Dr. Albert's office to notify them of concerns regarding wound vac therapy. Wound vac to left foot incision is not staying in place and the patient is coming in for dressing changes daily. Liquid drainage is collecting under the clear plastic drape. Patient ambulates into facility with Wound Vac alarming, sock and samir wrap are saturated with drainage. Also reported temp of 100.[address] Mills nurse Alyse. This nurse recommeds that the patient be evaluated by wound care now and at least weekly in addition to dressing changes at [facility]. Alyse states she will call back after speaking to Dr. Albert.
--- NOTE | 2018-10-11 11:35 | NUR ---
Call from Alyse at Dr. Mills office, states they have an appointment for him tomorrow 10/12/18 at 1000. Alyse states that she called the patient to notify him of this appointment and he did not answer his phone.
--- NOTE | 2018-10-11 18:00 | NUR ---
Patient arrives for outpatient wound vac dressing change. Ambulatory into facility. Asked patient if he received a call from Dr. Albert's office about having a follow up appointment tomorrow 10/12/18 @ 1000. Patient states that he got a call but was unable to answer, and no message was left. He states that he was not notified of this appointment, and is first hearing of it now. States that he does not know if he will be able to attend due to work obligations, but will go if he is allowed to leave work. Patient states that he cancelled his vacation planned for this week. Wound Vac is currently clean, dry, and intact. Wound vac has remained sealed since new dressing was applied on 10/09/18. Patient secured tubing himself with tape. Plan is for patient to attend follow up appointment tomorrow if able. He agrees to call nurses station at [facility] in am to let staff know if he is able to attend. Patient also agrees to notify Dr. Albert's office. Weekly labs drawn from PICC. Patient's daughter arrives with IV cubicin during outpatient visit "so it's not late." Observed daughter correctly administer IV cubicin via PICC. Wound vac left in place at this time as dressing will be changed tomorrow at 1000 if he attends appointment. If he does not attend appointment then he will return to [facility] for dressing change instead. Ambulatory out of facility without incident.
[2018-10-11 18:23] VITALS: BP 136/76
[2018-10-15 19:25] VITALS: BP 153/73
--- NOTE | 2018-10-15 19:29 | NUR ---
PT ARRIVES WITH NEW ORDER FOR SANTYL CREAM PRIOR TO WOUND VAC PLACEMENT, ORDERS PLACED IN CHART, PT HAS HIS OWN SUPPLY OF SANTYL CREAM THAT HE STATES HE HAS "ALREADY PAID FOR," SO WE WILL CONTINUE TO USE PATIENTS HOME DOSE, SURROUNDING TISSUE TO SURGICAL INCISION EXTREMELY MACERATED AND PEELING OFF, INCISION SITE CLEANSED AND WOUND VAC CHANGED, PT TOLERATED PROCEDURE WELL, NEW FOUL ODOR PRESENT DURING DRESSING CHANGE, WILL CONTINUE TO MONITOR, NO OTHER SIGNS OF INFECTION AT THIS TIME, WILL CONTINUE TO APPLY SANTYL AND CHANGE WOUND VAC EVERY Thursday PER ORDER
[2018-10-18 18:33] VITALS: BP 135/81
--- NOTE | 2018-10-18 18:34 | NUR ---
PT HAS STRONG INTERMITTENT COUGH, APPEARS TO BE LETHARGIC AND FALLING ASLEEP MULTIPLE TIMES THROUGHOUT WOUND VAC CHANGE, ORAL TEMP 102.4, SCHEDULED LABS DUE THIS EVENING, PENDING AT THIS TIME, PT EDUCATED THOROUGHLY ON VITAL SIGNS WELL POTENTIAL OF SERIOUS ILLNESS DUE TO INFECTION AND RECENT PNEUMONIA HISTORY, PT ACKNOWLEDGES EDUCATION AND DENIES NEED TO BE SEEN IN THE ER, PT AMBULATORY TO DOOR TO RETURN HOME, THIS NURSE STATES SHE IS GOING TO HAVE A PROVIDER REVIEW HIS LABS WHEN THEY RESULT THIS EVENING AND IF THEY ARE NOT IMPROVING HE WILL BE GETTING A PHONE CALL TO RETURN TO THE ER FOR FURTHER EVALUATION
--- NOTE | 2018-10-19 08:17 | NUR ---
CONTACT [facility] AND SPEAK WITH DR JI'S NURSE REGARDING LAB WORK DONE YESTERDAY EVENING. NURSE REPORTS SHE JUST PULLED LABS FROM THE FAX MACHINE SO THEY HAVE NOT BEEN ADDRESSED BY DOCTOR YET. UPDATE NURSE TO CONDITION OF PATIENT NOTED PREVIOUSLY. THE NURSE ALSO ASKS ABOUT THE CONDITION OF THE WOUND. REPORT OF WOUND CONDITION FROM WHEN THIS NURSE LAST SAW IT ON THE PROVIDED. CLINIC NURSE WILL PROVIDE LABS TO DR GOLDSMITH FOR REVIEW.
--- NOTE | 2018-10-19 09:32 | NUR ---
MIRZA, NURSE FOR DR GOLDSMITH, CALLS BACK. REPORTS THAT DR GOLDSMITH WAS UNSURE SHE ORDERED WEEKLY LABS. READ ORDER BACK TO MIRZA AND ADVISE THAT ORDER ALSO HAS LABS BEING SENT TO PCP. ADVISE THAT PCP IS OUT OF OFFICE CURRENTLY. MIRZA THEN ASKS "DOES HE HAVE A PARTNER THAT CAN SEE HIM?" ADVISE THIS FACILITY WILL CONTACT PATIENT REGARDING HIS LAB WORK AND NEED TO BE EVALUATED.
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
--- NOTE | 2018-10-19 11:56 | NUR ---
RYAN, NURSE FOR DR TRAORE, CONTACTS NURSE'S STATION AND SPEAKS TO SUBHA WEAVER. RYAN REPORTS DR TRAORE HAS REVIEWED LAB WORK AND HAS REMOTELY ORDERED LABS TO BE ADDED FROM LAST NIGHT AND TO TYPE AND CROSS THEN TRANSFUSE [address] TRAORE ALSO ORDERED LABS TO BE DONE ON THU FOLLOWING TRANSFUSION. PATIENT CONTACTED BY SUBHA WEAVER REGARDING ORDERS. PATIENT AGREES TO COME FOR TYPE AND CROSS AFTER FINISHING A TASK AT WORK.
[~2018-10-20] VITALS: Ht 172.7 cm; Wt 97.7 kg
[~2018-10-20 17:15] MED LIST changes: -ACETAMINOPHEN-O1 TAB PO; -ALBUTEROL2.5 MG/3 M IH; -CUBICIN 500MG500 MG IV; -FLUTICASONE-SA1 EAC4 IH; -SANTYL30 GM TP
[2018-10-20 17:30] VITALS: BP 126/83
--- NOTE | 2018-10-20 19:30 | NUR ---
Patient here for wound vac dressing change and repeat lab draw after blood transfusion per Dr. Kidd orders. Continues to be febrile, temp today is 101.8. WBC increasing. Discussed lab results and vitals with Macy José. RENEE, recommended patient be seen in ED. Verbalized concerns to patient and recommended that he be evaluated in the ED. Patient raises his voice, states "who do you want me to see, I see you guys all the time, I came up here the other day to see Dr. Mariano and they had some lady, his midlevel, see me instead, I tried to see Dr. Kidd but he is gone, there is no one here for me to see." Explained to patient that the ED is open 29/09. He states "then it'll just be some midlevel practitioner that'll see me." Informed patient of risks/ possible complications of delaying being evaluated by a physician/midlevel. Patient denies need for further evaluation. Denies needs or questions at this time and verbalizes understanding of risks/possible complications. Patient signs release from responsibility. Ambulatory out of facility without incident. Wound vac to left foot amputation is clean, dry, and intact. Roger wraps to LLE CDI. PICC to right upper arm.
[2018-10-21] MEDS ORDERED: ACETAMINOPHEN-O1 TAB PO (10:05)
[2018-10-21] MEDS ORDERED: BENZONATATE100 M2 PO (10:06)
[2018-10-21] MEDS ORDERED: VIRTUSSIN A/C118 ML PO (10:06)
[2018-10-21] MEDS ORDERED: FLUTICASONE-SA1 EAC4 IH (10:12)
[2018-10-21] MEDS ORDERED: SANTYL30 GM TP (10:22)
[2018-10-21] MEDS ORDERED: ALBUTEROL2.5 MG/3 M IH (10:22)
[2018-10-21] MEDS ORDERED: CUBICIN 500MG500 MG IV (10:23)
== END 2018-10-21 09:00 | disposition home or self-care, planned readmission (81) ==
LOC: AMSURD 17:15
DX: M86.8X7 Other osteomyelitis, ankle and foot (principal)
CPT/HCPCS: 19814; A6209

== ENCOUNTER → 2018-10-20 | Outpatient (CLI) | payer OTHER ==
[2018-10-19 19:50] VITALS: BP 121/60
[2018-10-20 18:05] LABS: EOS # 0.4 (0.04-0.40); EOS % 2.6 % (0.0-4.0); HEMATOCRIT 28.4 % (42.0-52.0); HEMOGLOBIN 8.9 g/dL (13.5-18.0); LYMPH# 1.9 (1.50-4.00); MEAN CELL VOLUME 86 fl (78-100); MEAN CORPUSCULAR HEMOGLOBIN 27 pg (27-31); MEAN CORPUSCULAR HGB CONC 31 g/dL (33-37); MEAN PLATELET VOLUME 9.5 fl (7.4-10.4); MONO # 1.2 (0.20-0.80); PLATELET COUNT 337 K/mm3 (130-400); RED BLOOD COUNT 3.31 M/mm3 (4.20-5.60); RED CELL DISTRIBUTION WIDTH 14.7 % (11.5-14.5); WHITE BLOOD COUNT 13.9 K/mm3 (4.8-10.8)
[2018-10-20 18:06] LABS: NEU # 10.4 (1.40-6.50)
[2018-10-20 18:17] LABS: ALBUMIN 3.1 g/dL (3.5-5.0); POTASSIUM 4.2 mmol/L (3.5-5.1)
[2018-10-20 18:19] LABS: CALCIUM 8.8 mg/dL (8.3-10.5)
[2018-10-20 18:20] LABS: TOTAL PROTEIN 7.8 g/dL (6.4-8.3)
[2018-10-20 18:22] LABS: TOTAL BILIRUBIN 0.4 mg/dL (0.2-1.2)
== END ==
LOC: LAB 16:23
PROVIDERS: Internal Medicine
DX: E11.621 Type 2 diabetes mellitus with foot ulcer (principal); E11.42 Type 2 diabetes mellitus with diabetic polyneuropathy; L97.529 Non-pressure chronic ulcer of other part of left foot with unspecified severity; D64.9 Anemia, unspecified

== ENCOUNTER 2018-10-21 09:53 | Emergency (ER) | payer OTHER ==
[2018-10-21] MEDS ORDERED: ACETAMINOPHEN-O1 TAB PO (10:05)
[2018-10-21] MEDS ORDERED: BENZONATATE100 M2 PO (10:06)
[2018-10-21] MEDS ORDERED: VIRTUSSIN A/C118 ML PO (10:06)
[2018-10-21] MEDS ORDERED: FLUTICASONE-SA1 EAC4 IH (10:12)
[2018-10-21 10:16] LABS: HEMOGLOBIN 8.5 g/dL (13.5-18.0); MEAN CELL VOLUME 87 fl (78-100); MEAN CORPUSCULAR HEMOGLOBIN 27 pg (27-31); MEAN CORPUSCULAR HGB CONC 32 g/dL (33-37); MEAN PLATELET VOLUME 9.4 fl (7.4-10.4); PLATELET COUNT 327 K/mm3 (130-400); RED CELL DISTRIBUTION WIDTH 14.8 % (11.5-14.5); WHITE BLOOD COUNT 13.2 K/mm3 (4.8-10.8)
[2018-10-21] MEDS ORDERED: ALBUTEROL2.5 MG/3 M IH (10:22)
[2018-10-21] MEDS ORDERED: SANTYL30 GM TP (10:22)
[2018-10-21] MEDS ORDERED: CUBICIN 500MG500 MG IV (10:23)
[2018-10-21 10:26] LABS: ALBUMIN 2.8 g/dL (3.5-5.0); POTASSIUM 4.1 mmol/L (3.5-5.1)
[2018-10-21 10:27] LABS: LYMPHOCYTE 15 % (20-51); MONOCYTE 3 % (3-10); NEUTROPHILS 80 % (42-75)
[2018-10-21 10:28] LABS: CALCIUM 8.5 mg/dL (8.3-10.5)
[2018-10-21 10:29] LABS: TOTAL PROTEIN 7.3 g/dL (6.4-8.3)
[2018-10-21 10:31] LABS: TOTAL BILIRUBIN 0.5 mg/dL (0.2-1.2)
[2018-10-21 10:34] LABS: PROTHROMBIN TIME 11.8 SECONDS (9.0-12.0)
[2018-10-21 14:51] VITALS: BP 168/95
== END 2018-10-21 14:38 | disposition short-term general hospital (02) ==
LOC: ED 09:53
PROVIDERS: Nurse Practitioner Primary Care
DX: E11.69 Type 2 diabetes mellitus with other specified complication (principal); M86.8X7 Other osteomyelitis, ankle and foot; I50.9 Heart failure, unspecified; Z79.4 Long term (current) use of insulin; Z86.711 Personal history of pulmonary embolism
CPT/HCPCS: J1940; J7030

== ENCOUNTER 2018-10-27 15:44 | Inpatient (IN) | payer OTHER ==
[~2018-10-27] VITALS: Ht 172.7 cm; Wt 90.1 kg
[~2018-10-27 15:44] MED LIST changes: +ACETAMINOPHEN-O1 TAB PO; +ALBUTEROL2.5 MG/3 M IH; +CUBICIN 500MG500 MG IV; +FLUTICASONE-SA1 EAC4 IH; +SANTYL30 GM TP
[2018-10-27] MEDS ORDERED: ENOXAPARIN40 MG/0.1 SQ (15:51)
[2018-10-27] MEDS ORDERED: ADVAIR DISKUS1 DS2 IH (15:52)
[2018-10-27] MEDS ORDERED: FEOSOL325 MG PO (15:52)
[2018-10-27] MEDS ORDERED: NOVOLOG 100U100 U/ML SQ (15:54)
[2018-10-27] MEDS ORDERED: NOVOLOG 100U100 U/ML (15:55)
[2018-10-27] MEDS ORDERED: SENOKOT S 50 MG1 TAB PO (15:55)
[2018-10-27] MEDS ORDERED: MELATIN 3 MG-11 TAB PO (15:55)
[2018-10-27 16:12] VITALS: BP 136/51
[2018-10-27 17:32] LABS: URINE APPEARANCE CLEAR; URINE BILIRUBIN NEGATIVE (NEGATIVE); URINE BLOOD NEGATIVE (NEGATIVE); URINE COLOR YELLOW; URINE GLUCOSE NEGATIVE (NEGATIVE); URINE KETONE NEGATIVE (NEGATIVE); URINE LEUKOCYTE ESTERASE NEGATIVE (NEGATIVE); URINE MUCUS PRESENT (NOT PRESENT); URINE NITRATE NEGATIVE (NEGATIVE); URINE PROTEIN(semi-quant) NEGATIVE (NEGATIVE); URINE UROBILINOGEN NORMAL (NORMAL); URINE WBC 0-1 /hpf (0-3)
[2018-10-27 18:00] VITALS: BP 147/78
[2018-10-27 18:31] VITALS: BP 147/78
[2018-10-28 06:15] VITALS: BP 152/76
[2018-10-28 06:43] LABS: EOS # 0.3 (0.04-0.40); HEMATOCRIT 30.3 % (42.0-52.0); HEMOGLOBIN 9.5 g/dL (13.5-18.0); LYMPH# 2.8 (1.50-4.00); MEAN CELL VOLUME 86 fl (78-100); MEAN CORPUSCULAR HEMOGLOBIN 27 pg (27-31); MEAN CORPUSCULAR HGB CONC 31 g/dL (33-37); MEAN PLATELET VOLUME 8.5 fl (7.4-10.4); MONO # 0.7 (0.20-0.80); NEU # 4.6 (1.40-6.50); RED BLOOD COUNT 3.51 M/mm3 (4.20-5.60); RED CELL DISTRIBUTION WIDTH 14.7 % (11.5-14.5); WHITE BLOOD COUNT 8.5 K/mm3 (4.8-10.8)
[2018-10-28 06:45] LABS: PLATELET COUNT 678 K/mm3 (130-400)
[2018-10-28 06:49] LABS: ALBUMIN 2.9 g/dL (3.5-5.0)
[2018-10-28 06:50] LABS: POTASSIUM 4.3 mmol/L (3.5-5.1)
[2018-10-28 06:51] LABS: CALCIUM 9.1 mg/dL (8.3-10.5)
[2018-10-28 06:52] LABS: TOTAL PROTEIN 7.6 g/dL (6.4-8.3)
[2018-10-28 06:54] LABS: TOTAL BILIRUBIN 0.2 mg/dL (0.2-1.2)
[2018-10-28 18:42] VITALS: BP 153/87
[2018-10-29 06:20] VITALS: BP 147/80
[2018-10-29 18:36] VITALS: BP 117/78
[2018-10-30 06:19] VITALS: BP 152/85
[2018-10-30 19:09] VITALS: BP 136/77
[2018-10-31 06:16] VITALS: BP 145/75
[2018-10-31 18:40] VITALS: BP 138/72
[2018-11-01 06:18] VITALS: BP 150/78
[2018-11-01 18:58] VITALS: BP 126/80
[2018-11-02 06:15] VITALS: BP 138/83
[2018-11-02 06:21] LABS: EOS # 0.2 (0.04-0.40); EOS % 1.9 % (0.0-4.0); HEMATOCRIT 30.2 % (42.0-52.0); HEMOGLOBIN 9.4 g/dL (13.5-18.0); LYMPH# 3.4 (1.50-4.00); MEAN CELL VOLUME 87 fl (78-100); MEAN CORPUSCULAR HEMOGLOBIN 27 pg (27-31); MEAN CORPUSCULAR HGB CONC 31 g/dL (33-37); MEAN PLATELET VOLUME 8.3 fl (7.4-10.4); MONO # 0.6 (0.20-0.80); NEU # 4.3 (1.40-6.50); RED BLOOD COUNT 3.49 M/mm3 (4.20-5.60); WHITE BLOOD COUNT 8.5 K/mm3 (4.8-10.8)
[2018-11-02 06:29] LABS: PLATELET COUNT 560 K/mm3 (130-400)
[2018-11-02 06:31] LABS: ALBUMIN 3.1 g/dL (3.5-5.0); POTASSIUM 4.5 mmol/L (3.5-5.1)
[2018-11-02 06:32] LABS: CALCIUM 9.3 mg/dL (8.3-10.5)
[2018-11-02 06:33] LABS: TOTAL PROTEIN 6.9 g/dL (6.4-8.3)
[2018-11-02 06:35] LABS: TOTAL BILIRUBIN 0.2 mg/dL (0.2-1.2)
[2018-11-02 19:13] VITALS: BP 141/84
[2018-11-03 06:21] VITALS: BP 153/81
[2018-11-03 18:29] VITALS: BP 116/74
[2018-11-04 06:24] VITALS: BP 147/82
[2018-11-04] MEDS ORDERED: ACETAMINOPHEN-O1 TAB PO (12:57)
[2018-11-04] MEDS ORDERED: GABAPENTIN TAB600 MG PO (12:58)
[2018-11-04] MEDS ORDERED: SENOKOT S 50 MG1 TAB PO (12:59)
[2018-11-04] MEDS ORDERED: PERCOCET 325 MG1 TA2 PO (15:49)
[2018-11-04] MEDS ORDERED: NOVAPLUS L40 MG/0.4 SQ (16:11)
== END 2018-11-04 16:39 | disposition home or self-care (01) | DRG 948 ==
LOC: MED/SURG 15:44
PROVIDERS: Nurse Practitioner Primary Care; ADMIT Physician Assistant
DX: R53.81 Other malaise (principal); M86.9 Osteomyelitis, unspecified; D50.9 Iron deficiency anemia, unspecified; E11.40 Type 2 diabetes mellitus with diabetic neuropathy, unspecified; E11.69 Type 2 diabetes mellitus with other specified complication; E11.51 Type 2 diabetes mellitus with diabetic peripheral angiopathy without gangrene; E11.65 Type 2 diabetes mellitus with hyperglycemia; E78.5 Hyperlipidemia, unspecified; R05 Cough; Z79.4 Long term (current) use of insulin; Z89.512 Acquired absence of left leg below knee; Z91.11 Patient's noncompliance with dietary regimen; Z87.891 Personal history of nicotine dependence; Z88.1 Allergy status to other antibiotic agents
CPT/HCPCS: J1650; J1815

== ENCOUNTER 2018-11-29 13:05 | Emergency (ER) | payer OTHER ==
[~2018-11-29] VITALS: Ht 172.7 cm; Wt 90.5 kg
[~2018-11-29 13:05] MED LIST changes: +ADVAIR DISKUS1 DS2 IH; +ENOXAPARIN40 MG/0.1 SQ; +FEOSOL325 MG PO; +MELATIN 3 MG-11 TAB PO; +NOVAPLUS L40 MG/0.4 SQ; +NOVOLOG 100U100 U/ML; +NOVOLOG 100U100 U/ML SQ; +PERCOCET 325 MG1 TA2 PO; +SENOKOT S 50 MG1 TAB PO
[2018-11-29] MEDS ORDERED: ZOVIRAX400 MG PO (14:19)
[2018-11-29 14:30] VITALS: BP 137/97
== END 2018-11-29 14:32 | disposition home or self-care (01) ==
LOC: ED 13:05
DX: G51.0 Bell's palsy (principal); E11.9 Type 2 diabetes mellitus without complications; I10 Essential (primary) hypertension; Z79.4 Long term (current) use of insulin; Z89.512 Acquired absence of left leg below knee; Z79.51 Long term (current) use of inhaled steroids

== ENCOUNTER 2019-08-09 15:57 | Emergency (ER) | payer MEDICAID ==
[~2019-08-09] VITALS: Ht 172.7 cm; Wt 102.3 kg
[~2019-08-09 15:57] MED LIST changes: +ZOVIRAX400 MG PO
[2019-08-09] MEDS ORDERED: SERTRALINE50 MG PO (16:37)
[2019-08-09] MEDS ORDERED: HUMALOG KWIKPEN SQ (16:37)
[2019-08-09] MEDS ORDERED: LEVEMIR FLEX100 U/ML SQ (16:37)
[2019-08-09] MEDS ORDERED: METFORMIN ER500 MG PO (16:37)
[2019-08-09] MEDS ORDERED: PAIN RELIEF EX500 MG PO (16:38)
[2019-08-09] MEDS ORDERED: PRAVASTATIN SOD40 MG PO (16:38)
[2019-08-09] MEDS ORDERED: GABAPENTIN TAB600 MG PO (16:38)
[2019-08-09 17:15] LABS: EOS # 0.2 (0.04-0.40); EOS % 2.1 % (0.0-4.0); HEMATOCRIT 33.8 % (42.0-52.0); HEMOGLOBIN 11.3 g/dL (13.5-18.0); LYMPH# 2.1 (1.50-4.00); MEAN CELL VOLUME 91 fl (78-100); MEAN CORPUSCULAR HEMOGLOBIN 30 pg (27-31); MEAN CORPUSCULAR HGB CONC 33 g/dL (33-37); MEAN PLATELET VOLUME 9.5 fl (7.4-10.4); MONO # 0.9 (0.20-0.80); NEU # 8.3 (1.40-6.50); PLATELET COUNT 223 K/mm3 (130-400); RED BLOOD COUNT 3.73 M/mm3 (4.20-5.60); RED CELL DISTRIBUTION WIDTH 13.1 % (11.5-14.5); WHITE BLOOD COUNT 11.6 K/mm3 (4.8-10.8)
[2019-08-09 17:20] LABS: POTASSIUM 4.6 mmol/L (3.5-5.1)
[2019-08-09 17:21] LABS: CALCIUM 8.8 mg/dL (8.3-10.5)
[2019-08-09 18:26] LABS: URINE APPEARANCE CLEAR; URINE COLOR YELLOW
[2019-08-09 18:36] LABS: URINE BILIRUBIN NEGATIVE (NEGATIVE); URINE BLOOD 50 ery/uL (NEGATIVE); URINE KETONE NEGATIVE (NEGATIVE); URINE LEUKOCYTE ESTERASE NEGATIVE (NEGATIVE); URINE NITRATE NEGATIVE (NEGATIVE); URINE PROTEIN(semi-quant) 2+ mg/dL (NEGATIVE); URINE UROBILINOGEN NORMAL (NORMAL); URINE WBC 0-1 /hpf (0-3)
[2019-08-09] MEDS ORDERED: VIBRAMYCIN HYC100 MG PO (20:07)
[2019-08-09 20:12] VITALS: BP 164/98
== END 2019-08-09 20:12 | disposition home or self-care (01) ==
LOC: ED 15:57
PROVIDERS: Nurse Practitioner Family
DX: L03.116 Cellulitis of left lower limb (principal); E11.65 Type 2 diabetes mellitus with hyperglycemia; I10 Essential (primary) hypertension; N17.9 Acute kidney failure, unspecified; Z87.891 Personal history of nicotine dependence; Z91.14 Patient's other noncompliance with medication regimen; Z86.14 Personal history of Methicillin resistant Staphylococcus aureus infection; Z79.4 Long term (current) use of insulin
CPT/HCPCS: J1815; J7030

== ENCOUNTER → 2019-11-01 | Outpatient (CLI) | payer MEDICAID ==
[2019-10-21 18:54] VITALS: BP 168/88
[~2019-11-01] MED LIST changes: +LEVEMIR FLEX100 U/ML SQ; +METFORMIN ER500 MG PO; +PAIN RELIEF EX500 MG PO; +PRAVASTATIN SOD40 MG PO; +SERTRALINE50 MG PO; +VIBRAMYCIN HYC100 MG PO
[2019-11-01 11:22] LABS: EOS # 0.1 (0.04-0.40); EOS % 1.8 % (0.0-4.0); HEMATOCRIT 36.8 % (42.0-52.0); HEMOGLOBIN 12.1 g/dL (13.5-18.0); LYMPH# 2.8 (1.50-4.00); MEAN CELL VOLUME 92 fl (78-100); MEAN CORPUSCULAR HEMOGLOBIN 30 pg (27-31); MEAN CORPUSCULAR HGB CONC 33 g/dL (33-37); MEAN PLATELET VOLUME 8.5 fl (7.4-10.4); MONO # 0.4 (0.20-0.80); NEU # 4.4 (1.40-6.50); PLATELET COUNT 251 K/mm3 (130-400); RED BLOOD COUNT 4.02 M/mm3 (4.20-5.60); RED CELL DISTRIBUTION WIDTH 14.2 % (11.5-14.5); WHITE BLOOD COUNT 7.9 K/mm3 (4.8-10.8)
[2019-11-01 11:49] LABS: POTASSIUM 5.2 mmol/L (3.5-5.1)
[2019-11-01 11:51] LABS: CALCIUM 9.3 mg/dL (8.3-10.5)
[2019-11-01 11:52] LABS: TOTAL PROTEIN 7.7 g/dL (6.4-8.3)
[2019-11-01 11:54] LABS: TOTAL BILIRUBIN 0.2 mg/dL (0.2-1.2)
[2019-11-01 12:22] LABS: ERYTHROCYTE SEDIMENTATION RATE 69 mm/hr (0-15)
[2019-11-01 22:30] LABS: TESTOSTERONE 386 ng/dL (240-871)
== END ==
LOC: LAB 11:08
PROVIDERS: Internal Medicine
DX: I10 Essential (primary) hypertension (principal); E11.42 Type 2 diabetes mellitus with diabetic polyneuropathy; R97.20 Elevated prostate specific antigen [PSA]

== ENCOUNTER → 2019-12-12 | Outpatient (CLI) | payer MEDICAID ==
[2019-10-21 18:54] VITALS: BP 168/88
[2019-12-12 09:03] LABS: EOS # 0.2 (0.04-0.40); EOS % 2.6 % (0.0-4.0); HEMATOCRIT 35.7 % (42.0-52.0); HEMOGLOBIN 11.6 g/dL (13.5-18.0); LYMPH# 2.3 (1.50-4.00); MEAN CELL VOLUME 94 fl (78-100); MEAN CORPUSCULAR HEMOGLOBIN 30 pg (27-31); MEAN CORPUSCULAR HGB CONC 33 g/dL (33-37); MEAN PLATELET VOLUME 8.6 fl (7.4-10.4); MONO # 0.4 (0.20-0.80); NEU # 5.5 (1.40-6.50); PLATELET COUNT 329 K/mm3 (130-400); RED BLOOD COUNT 3.82 M/mm3 (4.20-5.60); RED CELL DISTRIBUTION WIDTH 14.2 % (11.5-14.5); WHITE BLOOD COUNT 8.5 K/mm3 (4.8-10.8)
[2019-12-12 09:12] LABS: ALBUMIN 3.9 g/dL (3.5-5.0)
[2019-12-12 09:13] LABS: POTASSIUM 4.6 mmol/L (3.5-5.1)
[2019-12-12 09:14] LABS: CALCIUM 9.4 mg/dL (8.3-10.5)
[2019-12-12 09:15] LABS: TOTAL PROTEIN 7.5 g/dL (6.4-8.3)
[2019-12-12 09:17] LABS: TOTAL BILIRUBIN 0.3 mg/dL (0.2-1.2)
[2019-12-12 09:49] LABS: URINE COLOR YELLOW
[2019-12-12 09:50] LABS: URINE APPEARANCE CLEAR; URINE BILIRUBIN NEGATIVE (NEGATIVE); URINE BLOOD NEGATIVE (NEGATIVE); URINE GLUCOSE NEGATIVE (NEGATIVE); URINE KETONE SMALL (NEGATIVE); URINE LEUKOCYTE ESTERASE NEGATIVE (NEGATIVE); URINE MUCUS PRESENT (NOT PRESENT); URINE NITRATE NEGATIVE (NEGATIVE); URINE PROTEIN(semi-quant) TRACE mg/dL (NEGATIVE); URINE UROBILINOGEN NORMAL (NORMAL); URINE WBC 16-30 /hpf (0-3)
== END ==
LOC: LAB 08:45
PROVIDERS: Internal Medicine
DX: E11.42 Type 2 diabetes mellitus with diabetic polyneuropathy (principal); I10 Essential (primary) hypertension; N30.00 Acute cystitis without hematuria

== ENCOUNTER → 2020-02-27 | Outpatient (CLI) | payer MEDICAID ==
[2019-10-21 18:54] VITALS: BP 168/88
[2020-02-27 09:43] LABS: ALBUMIN 3.9 g/dL (3.5-5.0); POTASSIUM 5.3 mmol/L (3.5-5.1)
[2020-02-27 09:44] LABS: CALCIUM 9.1 mg/dL (8.3-10.5); EOS # 0.2 (0.04-0.40); EOS % 2.4 % (0.0-4.0); HEMATOCRIT 36.9 % (42.0-52.0); HEMOGLOBIN 12.5 g/dL (13.5-18.0); LYMPH# 2.6 (1.50-4.00); MEAN CELL VOLUME 91 fl (78-100); MEAN CORPUSCULAR HEMOGLOBIN 31 pg (27-31); MEAN CORPUSCULAR HGB CONC 34 g/dL (33-37); MEAN PLATELET VOLUME 9.5 fl (7.4-10.4); MONO # 0.6 (0.20-0.80); NEU # 3.6 (1.40-6.50); PLATELET COUNT 203 K/mm3 (130-400); RED BLOOD COUNT 4.06 M/mm3 (4.20-5.60); RED CELL DISTRIBUTION WIDTH 12.5 % (11.5-14.5); WHITE BLOOD COUNT 7.1 K/mm3 (4.8-10.8)
[2020-02-27 09:45] LABS: TOTAL PROTEIN 7.2 g/dL (6.4-8.3)
[2020-02-27 09:47] LABS: TOTAL BILIRUBIN 0.3 mg/dL (0.2-1.2)
== END ==
LOC: LAB 09:06
PROVIDERS: Internal Medicine
DX: I10 Essential (primary) hypertension (principal); E11.9 Type 2 diabetes mellitus without complications

== ENCOUNTER → 2020-03-29 | Outpatient (CLI) | payer MEDICAID ==
[2019-10-21 18:54] VITALS: BP 168/88
== END ==
LOC: RAD 15:12
DX: G45.9 Transient cerebral ischemic attack, unspecified (principal)

== ENCOUNTER → 2020-07-20 | Outpatient (CLI) | payer MEDICAID ==
[2019-10-21 18:54] VITALS: BP 168/88
[~2020-07-20] MED LIST changes: +CLOPIDOGREL75 M2 PO; +COLESTIPOL HYDRO1 GM PO; +DESVENLAFAXINE50 M3 PO; +KLONOPIN 1MG1 MG PO; +PRISTIQ ER25 MG; +VERAPAMIL ER120 MG PO
== END ==
LOC: LAB 10:52
DX: L03.115 Cellulitis of right lower limb (principal)

== ENCOUNTER → 2020-07-23 | Outpatient (CLI) | payer MEDICAID ==
[2019-10-21 18:54] VITALS: BP 168/88
== END ==
LOC: RAD 16:25
DX: I70.8 Atherosclerosis of other arteries (principal); Z98.890 Other specified postprocedural states; Z89.411 Acquired absence of right great toe; L97.909 Non-pressure chronic ulcer of unspecified part of unspecified lower leg with unspecified severity

== ENCOUNTER → 2020-08-28 | Outpatient (CLI) | payer MEDICAID ==
[2020-08-28 17:39] LABS: BASO # 0.03 (0.02-0.10); EOS # 0.28 (0.04-0.40); EOS % 3.2 % (0.0-4.0); HEMATOCRIT 30.6 % (42.0-52.0); HEMOGLOBIN 10.9 g/dL (13.5-18.0); LYMPH# 2.03 (1.50-4.00); MEAN CELL VOLUME 90 fl (78-100); MEAN CORPUSCULAR HEMOGLOBIN 32 pg (27-31); MEAN CORPUSCULAR HGB CONC 36 g/dL (33-37); MEAN PLATELET VOLUME 8.8 fl (7.4-10.4); MONO # 0.61 (0.20-0.80); NEU # 5.69 (1.40-6.50); PLATELET COUNT 218 K/mm3 (130-400); RED BLOOD COUNT 3.42 M/mm3 (4.20-5.60); RED CELL DISTRIBUTION WIDTH 11.9 % (11.5-14.5); WHITE BLOOD COUNT 8.7 K/mm3 (4.8-10.8)
[2020-08-28 17:53] LABS: ALBUMIN 3.5 g/dL (3.5-5.0); POTASSIUM 4.9 mmol/L (3.5-5.1)
[2020-08-28 17:54] LABS: CALCIUM 8.7 mg/dL (8.3-10.5)
[2020-08-28 17:55] LABS: TOTAL PROTEIN 6.8 g/dL (6.4-8.3)
[2020-08-28 17:57] LABS: TOTAL BILIRUBIN 0.2 mg/dL (0.2-1.2)
[2020-08-28 18:02] LABS: MAGNESIUM 1.92 mg/dL (1.60-2.60)
== END ==
LOC: LAB 17:17
PROVIDERS: Internal Medicine
DX: E11.9 Type 2 diabetes mellitus without complications (principal); K90.9 Intestinal malabsorption, unspecified; I10 Essential (primary) hypertension

== ENCOUNTER 2020-11-29 13:04 | Emergency (ER) | payer MEDICARE, MEDICAID ==
[~2020-11-29] VITALS: Ht 172.7 cm; Wt 110.6 kg
[~2020-11-29 13:04] MED LIST changes: -CLOPIDOGREL75 M2 PO; -COLESTIPOL HYDRO1 GM PO; -DESVENLAFAXINE50 M3 PO; -KLONOPIN 1MG1 MG PO; -PRISTIQ ER25 MG; -VERAPAMIL ER120 MG PO
[2020-11-29] MEDS ORDERED: LISINOPRIL10 MG PO (13:16)
[2020-11-29] MEDS ORDERED: VERAPAMIL ER120 MG PO (13:16)
[2020-11-29] MEDS ORDERED: COLESTIPOL HYDRO1 GM PO (13:19)
[2020-11-29] MEDS ORDERED: DESVENLAFAXINE50 M3 PO (13:19)
[2020-11-29] MEDS ORDERED: CLOPIDOGREL75 M2 PO (13:19)
[2020-11-29] MEDS ORDERED: PRISTIQ ER25 MG (13:20)
[2020-11-29] MEDS ORDERED: KLONOPIN 1MG1 MG PO (13:21)
[2020-11-29 14:17] LABS: BASO # 0.03 (0.02-0.10); HEMATOCRIT 24.2 % (42.0-52.0); HEMOGLOBIN 7.8 g/dL (13.5-18.0); LYMPH# 2.06 (1.50-4.00); MEAN CELL VOLUME 91 fl (78-100); MEAN CORPUSCULAR HEMOGLOBIN 29 pg (27-31); MEAN CORPUSCULAR HGB CONC 32 g/dL (33-37); MEAN PLATELET VOLUME 8.5 fl (7.4-10.4); MONO # 0.72 (0.20-0.80); NEU # 8.88 (1.40-6.50); PLATELET COUNT 300 K/mm3 (130-400); RED BLOOD COUNT 2.67 M/mm3 (4.20-5.60); RED CELL DISTRIBUTION WIDTH 15.5 % (11.5-14.5); WHITE BLOOD COUNT 11.7 K/mm3 (4.8-10.8)
[2020-11-29 14:46] LABS: D-DIMER 3.09 mg/L FEU (0.15-0.50)
[2020-11-29 14:52] LABS: TROPONIN-I 12.6 ng/mL (<0.030)
[2020-11-29 15:34] LABS: ERYTHROCYTE SEDIMENTATION RATE > 150 mm/hr (0-15)
[2020-11-29 15:38] LABS: ALBUMIN 3.1 g/dL (3.5-5.0); POTASSIUM 4.4 mmol/L (3.5-5.1)
[2020-11-29 15:39] LABS: CALCIUM 9.4 mg/dL (8.3-10.5)
[2020-11-29 15:40] LABS: TOTAL PROTEIN 7.3 g/dL (6.4-8.3)
[2020-11-29 15:42] LABS: TOTAL BILIRUBIN 0.3 mg/dL (0.2-1.2)
[2020-11-29 16:31] LABS: PROTHROMBIN TIME 10.4 SECONDS (9.0-12.0)
[2020-11-29 17:29] LABS: URINE APPEARANCE HAZY; URINE COLOR YELLOW; URINE PROTEIN(semi-quant) 3+ mg/dL (NEGATIVE)
[2020-11-29 17:30] LABS: URINE BILIRUBIN NEGATIVE (NEGATIVE); URINE BLOOD 50 ery/uL (NEGATIVE); URINE KETONE NEGATIVE (NEGATIVE); URINE LEUKOCYTE ESTERASE NEGATIVE (NEGATIVE); URINE NITRATE NEGATIVE (NEGATIVE); URINE UROBILINOGEN NORMAL (NORMAL); URINE WBC 0-1 /hpf (0-3)
[2020-11-29 17:31] LABS: URINE MUCUS PRESENT (NOT PRESENT)
[2020-11-30 05:17] LABS: BASO # 0.03 (0.02-0.10); EOS # 0.01 (0.04-0.40); EOS % 0.1 % (0.0-4.0); HEMATOCRIT 23.6 % (42.0-52.0); HEMOGLOBIN 7.3 g/dL (13.5-18.0); LYMPH# 2.23 (1.50-4.00); MEAN CELL VOLUME 94 fl (78-100); MEAN CORPUSCULAR HEMOGLOBIN 29 pg (27-31); MEAN CORPUSCULAR HGB CONC 31 g/dL (33-37); MEAN PLATELET VOLUME 8.9 fl (7.4-10.4); NEU # 13.16 (1.40-6.50); PLATELET COUNT 259 K/mm3 (130-400); RED CELL DISTRIBUTION WIDTH 15.9 % (11.5-14.5); WHITE BLOOD COUNT 16.4 K/mm3 (4.8-10.8)
[2020-11-30 05:22] LABS: POTASSIUM 4.4 mmol/L (3.5-5.1)
[2020-11-30 05:23] LABS: CALCIUM 8.5 mg/dL (8.3-10.5)
[2020-11-30 16:46] VITALS: BP 153/93
== END 2020-11-30 15:45 | disposition short-term general hospital (02) ==
LOC: ED 13:04
PROVIDERS: Nurse Practitioner Family
DX: I13.0 Hypertensive heart and chronic kidney disease with heart failure and stage 1 through stage 4 chronic kidney disease, or unspecified chronic kidney disease (principal); N18.9 Chronic kidney disease, unspecified; E11.22 Type 2 diabetes mellitus with diabetic chronic kidney disease; E11.40 Type 2 diabetes mellitus with diabetic neuropathy, unspecified; I50.9 Heart failure, unspecified; E78.5 Hyperlipidemia, unspecified; R79.89 Other specified abnormal findings of blood chemistry; A41.9 Sepsis, unspecified organism; I21.4 Non-ST elevation (NSTEMI) myocardial infarction; Z79.4 Long term (current) use of insulin; Z79.899 Other long term (current) drug therapy; Z79.02 Long term (current) use of antithrombotics/antiplatelets
CPT/HCPCS: J1644; J1815; J1940; J2543; J3370; J7030; J7050; P9016

== ENCOUNTER → 2021-01-14 | Outpatient (CLI) | payer MEDICAID ==
[~2021-01-14] MED LIST changes: +CLOPIDOGREL75 M2 PO; +COLESTIPOL HYDRO1 GM PO; +DESVENLAFAXINE50 M3 PO; +KLONOPIN 1MG1 MG PO; +PRISTIQ ER25 MG; +VERAPAMIL ER120 MG PO
== END ==
LOC: LAB 18:05
DX: R19.7 Diarrhea, unspecified (principal)

== ENCOUNTER → 2021-01-28 | Outpatient (CLI) | payer MEDICAID ==
[2021-01-28 16:02] LABS: BASO # 0.02 K/mm3 (0.02-0.10); EOS # 0.24 K/mm3 (0.04-0.40); EOS % 3.2 % (0.0-4.0); HEMATOCRIT 32.3 % (42.0-52.0); HEMOGLOBIN 10.4 g/dL (13.5-18.0); LYMPH# 2.22 K/mm3 (1.50-4.00); MEAN CELL VOLUME 93 fl (78-100); MEAN CORPUSCULAR HEMOGLOBIN 30 pg (27-31); MEAN CORPUSCULAR HGB CONC 32 g/dL (33-37); MEAN PLATELET VOLUME 8.9 fl (7.4-10.4); MONO # 0.44 K/mm3 (0.20-0.80); NEU # 4.52 K/mm3 (1.40-6.50); PLATELET COUNT 260 K/mm3 (130-400); RED BLOOD COUNT 3.48 M/mm3 (4.20-5.60); RED CELL DISTRIBUTION WIDTH 15.2 % (11.5-14.5); WHITE BLOOD COUNT 7.5 K/mm3 (4.8-10.8)
[2021-01-28 16:10] LABS: ALBUMIN 3.6 g/dL (3.5-5.0); POTASSIUM 5.6 mmol/L (3.5-5.1)
[2021-01-28 16:11] LABS: CALCIUM 9.1 mg/dL (8.3-10.5)
[2021-01-28 16:13] LABS: TOTAL PROTEIN 7.6 g/dL (6.4-8.3)
[2021-01-28 16:14] LABS: TOTAL BILIRUBIN 0.2 mg/dL (0.2-1.2)
[2021-01-28 16:24] LABS: MAGNESIUM 1.76 mg/dL (1.60-2.60)
== END ==
LOC: LAB 15:42
PROVIDERS: Internal Medicine
DX: E11.9 Type 2 diabetes mellitus without complications (principal); I25.10 Atherosclerotic heart disease of native coronary artery without angina pectoris; K90.9 Intestinal malabsorption, unspecified

== ENCOUNTER → 2021-04-16 | Outpatient (CLI) | payer MEDICAID ==
[2021-04-16 12:29] LABS: BASO # 0.01 K/mm3 (0.02-0.10); EOS # 0.11 K/mm3 (0.04-0.40); EOS % 1.8 % (0.0-4.0); HEMATOCRIT 36.2 % (42.0-52.0); HEMOGLOBIN 12.5 g/dL (13.5-18.0); LYMPH# 1.58 K/mm3 (1.50-4.00); MEAN CELL VOLUME 89 fl (78-100); MEAN CORPUSCULAR HEMOGLOBIN 31 pg (27-31); MEAN CORPUSCULAR HGB CONC 35 g/dL (33-37); MEAN PLATELET VOLUME 9.5 fl (7.4-10.4); MONO # 0.43 K/mm3 (0.20-0.80); NEU # 4.13 K/mm3 (1.40-6.50); PLATELET COUNT 253 K/mm3 (130-400); RED BLOOD COUNT 4.09 M/mm3 (4.20-5.60); RED CELL DISTRIBUTION WIDTH 13.2 % (11.5-14.5); WHITE BLOOD COUNT 6.3 K/mm3 (4.8-10.8)
[2021-04-16 12:36] LABS: ALBUMIN 3.4 g/dL (3.5-5.0); POTASSIUM 5.3 mmol/L (3.5-5.1)
[2021-04-16 12:37] LABS: CALCIUM 9.4 mg/dL (8.3-10.5)
[2021-04-16 12:38] LABS: TOTAL PROTEIN 7.7 g/dL (6.4-8.3)
[2021-04-16 12:40] LABS: TOTAL BILIRUBIN 0.3 mg/dL (0.2-1.2)
[2021-04-16 12:45] LABS: MAGNESIUM 2.03 mg/dL (1.60-2.60)
== END ==
LOC: LAB 11:36
PROVIDERS: Internal Medicine
DX: I25.10 Atherosclerotic heart disease of native coronary artery without angina pectoris (principal); I10 Essential (primary) hypertension; K90.9 Intestinal malabsorption, unspecified; E11.9 Type 2 diabetes mellitus without complications

== ENCOUNTER → 2021-07-04 | Outpatient (CLI) | payer MEDICARE, MEDICAID ==
[2021-07-04 16:51] LABS: BASO # 0.01 K/mm3 (0.02-0.10); EOS # 0.11 K/mm3 (0.04-0.40); EOS % 1.5 % (0.0-4.0); HEMATOCRIT 32.5 % (42.0-52.0); HEMOGLOBIN 10.6 g/dL (13.5-18.0); LYMPH# 2.65 K/mm3 (1.50-4.00); MEAN CELL VOLUME 93 fl (78-100); MEAN CORPUSCULAR HEMOGLOBIN 30 pg (27-31); MEAN CORPUSCULAR HGB CONC 33 g/dL (33-37); MEAN PLATELET VOLUME 8.5 fl (7.4-10.4); MONO # 0.49 K/mm3 (0.20-0.80); NEU # 4.15 K/mm3 (1.40-6.50); PLATELET COUNT 180 K/mm3 (130-400); RED BLOOD COUNT 3.51 M/mm3 (4.20-5.60); RED CELL DISTRIBUTION WIDTH 14.9 % (11.5-14.5); WHITE BLOOD COUNT 7.4 K/mm3 (4.8-10.8)
[2021-07-04 16:59] LABS: ALBUMIN 3.7 g/dL (3.5-5.0)
[2021-07-04 17:00] LABS: CALCIUM 8.8 mg/dL (8.3-10.5)
[2021-07-04 17:03] LABS: TOTAL BILIRUBIN 0.3 mg/dL (0.2-1.2)
[2021-07-04 17:30] LABS: POTASSIUM 6.1 mmol/L (3.5-5.1)
== END ==
LOC: LAB 16:27
PROVIDERS: Internal Medicine
DX: M86.8X7 Other osteomyelitis, ankle and foot (principal); E11.9 Type 2 diabetes mellitus without complications; K90.9 Intestinal malabsorption, unspecified; I25.10 Atherosclerotic heart disease of native coronary artery without angina pectoris; I73.9 Peripheral vascular disease, unspecified

== ENCOUNTER → 2021-07-19 | Outpatient (CLI) | payer MEDICARE, MEDICAID ==
[2021-07-19 16:13] LABS: CALCIUM 8.5 mg/dL (8.3-10.5)
== END ==
LOC: LAB 15:42
PROVIDERS: Internal Medicine
DX: M86.9 Osteomyelitis, unspecified (principal); E11.9 Type 2 diabetes mellitus without complications; I73.9 Peripheral vascular disease, unspecified; I25.10 Atherosclerotic heart disease of native coronary artery without angina pectoris; K90.9 Intestinal malabsorption, unspecified

== ENCOUNTER 2021-10-23 16:25 | Emergency (ER) | payer MEDICARE, MEDICAID ==
[~2021-10-23] VITALS: Ht 172.7 cm; Wt 109.1 kg
[2021-10-23 18:04] LABS: D-DIMER 0.56 mg/L FEU (0.15-0.50)
[2021-10-23 18:12] LABS: SODIUM 139 mmol/L (136-145)
[2021-10-23 18:14] LABS: ALBUMIN 3.7 g/dL (3.5-5.0)
[2021-10-23 18:16] LABS: BASO # 0.02 K/mm3 (0.02-0.10); EOS # 0.25 K/mm3 (0.04-0.40); HEMATOCRIT 30.5 % (42.0-52.0); HEMOGLOBIN 9.9 g/dL (13.5-18.0); LYMPH# 3.06 K/mm3 (1.50-4.00); MEAN CELL VOLUME 97 fl (78-100); MEAN CORPUSCULAR HEMOGLOBIN 32 pg (27-31); MEAN CORPUSCULAR HGB CONC 33 g/dL (33-37); MEAN PLATELET VOLUME 9.4 fl (7.4-10.4); PLATELET COUNT 211 K/mm3 (130-400); RED BLOOD COUNT 3.13 M/mm3 (4.20-5.60); RED CELL DISTRIBUTION WIDTH 14.2 % (11.5-14.5); TOTAL PROTEIN 6.7 g/dL (6.4-8.3); WHITE BLOOD COUNT 8.5 K/mm3 (4.8-10.8)
[2021-10-23 18:17] LABS: GLUCOSE 108 mg/dL (75-110); TOTAL BILIRUBIN 0.2 mg/dL (0.2-1.2)
[2021-10-23 18:21] LABS: AST-SGOT 12 U/L (5-34)
[2021-10-23 18:24] LABS: ALT/SGPT 15 U/L (0-55)
[2021-10-23 18:27] LABS: URINE APPEARANCE CLEAR; URINE BILIRUBIN NEGATIVE (NEGATIVE); URINE BLOOD 50 ery/uL (NEGATIVE); URINE COLOR YELLOW; URINE GLUCOSE 50 mg/dL (NEGATIVE); URINE KETONE NEGATIVE (NEGATIVE); URINE LEUKOCYTE ESTERASE NEGATIVE (NEGATIVE); URINE MUCUS PRESENT (NOT PRESENT); URINE NITRATE NEGATIVE (NEGATIVE); URINE PROTEIN(semi-quant) 3+ (NEGATIVE); URINE UROBILINOGEN NORMAL (NORMAL); URINE WBC 0-1 /hpf (0-3)
[2021-10-23 18:32] LABS: ALCOHOL IN-HOUSE < 10 mg/dL (<10); CARBON DIOXIDE 14 mmol/L (22-29); POTASSIUM 5.8 mmol/L (3.5-5.1)
[2021-10-23 19:10] LABS: ERYTHROCYTE SEDIMENTATION RATE 47 mm/hr (0-15)
[2021-10-23 22:20] LABS: CALCIUM 8.6 mg/dL (8.3-10.5)
[2021-10-23 22:26] LABS: MAGNESIUM 1.7 mg/dL (1.60-2.60)
[2021-10-23 22:27] LABS: POTASSIUM 6.3 mmol/L (3.5-5.1)
[2021-10-23 23:28] VITALS: BP 149/87
== END 2021-10-23 23:29 | disposition short-term general hospital (02) ==
LOC: ED 16:25
PROVIDERS: Physician Assistant
DX: E11.22 Type 2 diabetes mellitus with diabetic chronic kidney disease (principal); N18.9 Chronic kidney disease, unspecified; M79.89 Other specified soft tissue disorders; E11.10 Type 2 diabetes mellitus with ketoacidosis without coma; E87.5 Hyperkalemia; G47.33 Obstructive sleep apnea (adult) (pediatric); Z28.310 Unvaccinated for COVID-19; Z99.2 Dependence on renal dialysis; Z91.14 Patient's other noncompliance with medication regimen
CPT/HCPCS: J1940; J7030

== ENCOUNTER → 2022-01-16 | Outpatient (CLI) | payer MEDICARE, MEDICAID | LOC: RAD 16:06 | DX: M19.011 Primary osteoarthritis, right shoulder (principal) ==

== ENCOUNTER → 2022-11-13 | Outpatient (CLI) | payer MEDICARE, MEDICAID | LOC: RAD 11-04 11:00 | DX: M19.012 Primary osteoarthritis, left shoulder (principal); M77.8 Other enthesopathies, not elsewhere classified ==

== ENCOUNTER → 2023-04-20 | Outpatient (CLI) | payer MEDICARE, MEDICAID ==
[2023-04-20 10:38] LABS: BASO # 0.03 K/mm3 (0.02-0.10); EOS # 0.19 K/mm3 (0.04-0.40); EOS % 2.8 % (0.0-4.0); HEMATOCRIT 30.3 % (42.0-52.0); HEMOGLOBIN 10.1 g/dL (13.5-18.0); MEAN CELL VOLUME 99 fl (78-100); MEAN CORPUSCULAR HEMOGLOBIN 33 pg (27-31); MEAN CORPUSCULAR HGB CONC 33 g/dL (33-37); MEAN PLATELET VOLUME 8.6 fl (7.4-10.4); PLATELET COUNT 207 K/mm3 (130-400); RED BLOOD COUNT 3.07 M/mm3 (4.20-5.60); RED CELL DISTRIBUTION WIDTH 13.3 % (11.5-14.5); WHITE BLOOD COUNT 6.8 K/mm3 (4.8-10.8)
[2023-04-20 10:51] LABS: CALCIUM 9.1 mg/dL (8.3-10.5)
[2023-04-20 10:52] LABS: TOTAL PROTEIN 7.1 g/dL (6.4-8.3)
[2023-04-20 10:54] LABS: TOTAL BILIRUBIN 0.3 mg/dL (0.2-1.2)
[2023-04-20 10:59] LABS: MAGNESIUM 2.22 mg/dL (1.60-2.60)
--- NOTE | 2023-04-20 11:00 | NUR ---
Pt to ED room 3 for pre-procedure EKG. Pt remains in WC. Once complete, escorted to clinic for appt with Dr. Kidd.
[2023-04-20 11:01] LABS: PROTHROMBIN TIME 9.7 SECONDS (9.0-12.0)
[2023-04-20 11:10] LABS: URINE APPEARANCE CLEAR (CLEAR); URINE COLOR YELLOW (YELLOW)
[2023-04-20 11:12] LABS: URINE GLUCOSE 2+ (NEGATIVE); URINE KETONE NEGATIVE (NEGATIVE); URINE PROTEIN(semi-quant) NEGATIVE (NEGATIVE)
[2023-04-20 11:13] LABS: URINE BILIRUBIN NEGATIVE (NEGATIVE); URINE BLOOD NEGATIVE (NEGATIVE); URINE LEUKOCYTE ESTERASE NEGATIVE (NEGATIVE); URINE NITRATE NEGATIVE (NEGATIVE); URINE WBC 0-1 /hpf (0-3)
== END ==
LOC: LAB 10:20
PROVIDERS: Internal Medicine
DX: Z01.818 Encounter for other preprocedural examination (principal); I11.9 Hypertensive heart disease without heart failure; E11.9 Type 2 diabetes mellitus without complications; K90.9 Intestinal malabsorption, unspecified

== ENCOUNTER → 2023-10-06 | Outpatient (CLI) | payer MEDICARE, MEDICAID ==
[2023-10-06 15:55] LABS: BASO # 0.03 K/mm3 (0.02-0.10); EOS # 0.17 K/mm3 (0.04-0.40); HEMATOCRIT 30.8 % (42.0-52.0); HEMOGLOBIN 9.9 g/dL (13.5-18.0); LYMPH# 2.39 K/mm3 (1.50-4.00); MEAN CELL VOLUME 99 fl (78-100); MEAN CORPUSCULAR HEMOGLOBIN 32 pg (27-31); MEAN CORPUSCULAR HGB CONC 32 g/dL (33-37); MEAN PLATELET VOLUME 9.4 fl (7.4-10.4); MONO # 0.44 K/mm3 (0.20-0.80); NEU # 5.25 K/mm3 (1.40-6.50); PLATELET COUNT 183 K/mm3 (130-400); RED BLOOD COUNT 3.11 M/mm3 (4.20-5.60); WHITE BLOOD COUNT 8.3 K/mm3 (4.8-10.8)
[2023-10-06 16:05] LABS: ALBUMIN 4.1 g/dL (3.5-5.0)
[2023-10-06 16:06] LABS: CALCIUM 10.1 mg/dL (8.3-10.5)
[2023-10-06 16:08] LABS: TOTAL PROTEIN 7.5 g/dL (6.4-8.3)
[2023-10-06 16:10] LABS: TOTAL BILIRUBIN 0.3 mg/dL (0.2-1.2)
[2023-10-06 16:15] LABS: MAGNESIUM 2.47 mg/dL (1.60-2.60)
== END ==
LOC: LAB 15:35
PROVIDERS: Internal Medicine
DX: Z12.5 Encounter for screening for malignant neoplasm of prostate (principal); E11.9 Type 2 diabetes mellitus without complications; I25.10 Atherosclerotic heart disease of native coronary artery without angina pectoris; I10 Essential (primary) hypertension

== ENCOUNTER → 2024-02-25 | Outpatient (CLI) | payer MEDICARE, MEDICAID ==
[2024-02-25 09:03] LABS: BASO # 0.02 K/mm3 (0.02-0.10); EOS # 0.09 K/mm3 (0.04-0.40); EOS % 1.6 % (0.0-4.0); HEMATOCRIT 29.8 % (42.0-52.0); HEMOGLOBIN 9.7 g/dL (13.5-18.0); LYMPH# 2.27 K/mm3 (1.50-4.00); MEAN CELL VOLUME 94 fl (78-100); MEAN CORPUSCULAR HEMOGLOBIN 31 pg (27-31); MEAN CORPUSCULAR HGB CONC 33 g/dL (33-37); MONO # 0.42 K/mm3 (0.20-0.80); NEU # 2.82 K/mm3 (1.40-6.50); PLATELET COUNT 238 K/mm3 (130-400); RED BLOOD COUNT 3.18 M/mm3 (4.20-5.60); RED CELL DISTRIBUTION WIDTH 15.3 % (11.5-14.5); WHITE BLOOD COUNT 5.6 K/mm3 (4.8-10.8)
[2024-02-25 09:09] LABS: ALBUMIN 3.3 g/dL (3.5-5.0)
[2024-02-25 09:10] LABS: CALCIUM 8.4 mg/dL (8.3-10.5)
[2024-02-25 09:11] LABS: TOTAL PROTEIN 6.2 g/dL (6.4-8.3)
[2024-02-25 09:18] LABS: MAGNESIUM 1.33 mg/dL (1.60-2.60)
[2024-02-25 09:38] LABS: TOTAL BILIRUBIN 0.4 mg/dL (0.2-1.2)
== END ==
LOC: LAB 08:37
PROVIDERS: Internal Medicine
DX: K90.9 Intestinal malabsorption, unspecified (principal); E78.2 Mixed hyperlipidemia; I10 Essential (primary) hypertension; E11.9 Type 2 diabetes mellitus without complications

== ENCOUNTER → 2024-03-29 | Outpatient (CLI) | payer MEDICARE, MEDICAID ==
[2024-03-29 10:02] LABS: BASO # 0.03 K/mm3 (0.02-0.10); EOS # 0.28 K/mm3 (0.04-0.40); EOS % 3.3 % (0.0-4.0); HEMATOCRIT 34.6 % (42.0-52.0); HEMOGLOBIN 10.7 g/dL (13.5-18.0); LYMPH# 2.73 K/mm3 (1.50-4.00); MEAN CELL VOLUME 99 fl (78-100); MEAN CORPUSCULAR HEMOGLOBIN 31 pg (27-31); MEAN CORPUSCULAR HGB CONC 31 g/dL (33-37); MEAN PLATELET VOLUME 10.6 fl (7.4-10.4); MONO # 0.54 K/mm3 (0.20-0.80); NEU # 4.89 K/mm3 (1.40-6.50); PLATELET COUNT 222 K/mm3 (130-400); RED BLOOD COUNT 3.51 M/mm3 (4.20-5.60); RED CELL DISTRIBUTION WIDTH 15.7 % (11.5-14.5); WHITE BLOOD COUNT 8.5 K/mm3 (4.8-10.8)
[2024-03-29 10:15] LABS: ALBUMIN 3.5 g/dL (3.5-5.0)
[2024-03-29 10:16] LABS: CALCIUM 8.8 mg/dL (8.3-10.5)
[2024-03-29 10:19] LABS: TOTAL BILIRUBIN 0.3 mg/dL (0.2-1.2)
[2024-03-29 10:24] LABS: MAGNESIUM 1.81 mg/dL (1.60-2.60)
== END ==
LOC: LAB 09:45
PROVIDERS: Internal Medicine
DX: I10 Essential (primary) hypertension (principal); E11.9 Type 2 diabetes mellitus without complications

== ENCOUNTER → 2024-04-01 | Outpatient (CLI) | payer MEDICARE ==
[~2024-04-01] VITALS: Ht 172.7 cm; Wt 109.1 kg
[2024-04-01 10:46] VITALS: BP 165/84
== END ==
LOC: WOUND 10:31
DX: S81.801A Unspecified open wound, right lower leg, initial encounter (principal)
CPT/HCPCS: 18895; 18897; 19899; A6021

== ENCOUNTER → 2024-04-08 | Outpatient (CLI) | payer MEDICARE ==
[~2024-04-08] VITALS: Ht 172.7 cm; Wt 109.1 kg
[2024-04-08 13:08] VITALS: BP 159/79
--- NOTE | 2024-04-08 13:11 | NUR ---
PATIENT HERE FOR WOUND CARE. CAREGIVER REPORTS PATIENT FELL YESTERDAY AND CAUSED A NEW ABRASION TO LEFT STUMP. NEW BLISTERING NOTED TO RLE WITH ONE OPEN AREA. AREAS TO LEFT STUMP NOTED TO BE SCABBED OVER. AREAS CLEANSED WITH HIBICLENSE AND DEBRISOFT LOLLI. JET LAVAGE. DRIED WITH 4X4. PHOTOGRAPHS AND MEASUREMENTS TAKEN. NEW PROXIMAL SUPERFIFICAL ABRASION LEGNTH: 0.7CM WIDTH: 0.8CM. LATERAL LEFT STUMP WOUND LENGTH: 1.2CM WIDTH: 1.2CM. MEDIAL LEFT STUMP WOUND LENGTH: 0.7CM WIDTH: 0.5CM. RIGHT GUILLORY PROXIMAL SUPERFICIAL WOUND LENGTH: 1.6CM WIDTH: 0.7CM. RIGHT GUILLORY MEDIAL FLUID FILLED BLISTER LENGTH: 1.5CM WIDTH: 1.8CM. RIGHT GUILLORY DISTAL FLUID FILLED BLISTER LENGTH: 2.4CM WIDTH: 1.5CM. IODINE PAINTED TO RIGHT GUILLORY BLISTERS, COVERED WITH OPTILOCK, SOFT ROLL, AND TAPE. TUBIGRIP G TO RIGHT LOWER LEG. LEFT STUMP WOUNDS SCABBED OVER, AQUACEL EXTRA AND MEPILEX BORDER FOAM. SUPPLIES GIVEN TO CAREGIVER TO PROVIDE WOUND DRESSING CHANGES ON THURSDAY AND THURSDAY.
== END ==
LOC: WOUND 12:59
DX: S81.801A Unspecified open wound, right lower leg, initial encounter (principal)
CPT/HCPCS: 18897; 19899

== ENCOUNTER → 2024-04-15 | Outpatient (CLI) | payer MEDICARE, MEDICAID ==
[~2024-04-15] VITALS: Ht 172.7 cm; Wt 111.3 kg
--- NOTE | 2024-04-15 13:10 | NUR ---
Pt arrives via w/c with caregiver for wound care to left stump and right cahmberlain. Caregiver has been doing dressing changes on Mon and Thu and has adequate supplies at this time. Current dressings removed. See progress notes from provider Connie Vieyra APRN for specific wound care done and for today's measurements. Pt tolerated wound care well. Pt given new tubigrip for right lower leg as other one stretched out and assisted with putting on right shoe. Pt repositions self into his w/c and leaves facility with caregiver. Pt to return Apr 22.
[2024-04-15 13:18] VITALS: BP 150/77
== END ==
LOC: WOUND 12:56
DX: S81.851D Open bite, right lower leg, subsequent encounter (principal); T87.89 Other complications of amputation stump; E11.9 Type 2 diabetes mellitus without complications; W54.0XXD Bitten by dog, subsequent encounter
CPT/HCPCS: 18895; 18897; A6021

== ENCOUNTER → 2024-04-19 | Outpatient (CLI) | payer MEDICARE, MEDICAID ==
[2024-04-19 11:49] LABS: URINE WBC 0 /hpf (0-3)
[2024-04-19 12:29] LABS: PH-URINE 5.5 (5.0 - 8.0); URINE APPEARANCE CLEAR (CLEAR); URINE BILIRUBIN NEGATIVE (NEGATIVE); URINE BLOOD TRACE-INTACT (NEGATIVE); URINE COLOR YELLOW (YELLOW); URINE GLUCOSE 2+ (NEGATIVE); URINE KETONE NEGATIVE (NEGATIVE); URINE LEUKOCYTE ESTERASE NEGATIVE (NEGATIVE); URINE MUCUS PRESENT (NOT PRESENT); URINE NITRATE NEGATIVE (NEGATIVE); URINE PROTEIN(semi-quant) 2+ (NEGATIVE)
== END ==
LOC: LAB 11:39
PROVIDERS: Internal Medicine
DX: M79.671 Pain in right foot (principal); N39.0 Urinary tract infection, site not specified; Z89.411 Acquired absence of right great toe

== ENCOUNTER → 2024-04-28 | Outpatient (CLI) | payer MEDICARE, MEDICAID ==
[~2024-04-28] MED LIST changes: +FLOMAX0.4 MG PO
== END ==
LOC: RAD 17:19
DX: M25.511 Pain in right shoulder (principal); Z91.81 History of falling

== ENCOUNTER → 2024-05-19 | Outpatient (CLI) | payer MEDICARE, MEDICAID ==
[~2024-05-19] MED LIST changes: +ATORVASTATIN CA80 MG PO; +CARVEDILOL25 MG PO; +CLOPIDOGREL PO; +DESVENLAFAXINE100 M3 PO; +DOXYCYCLINE HY100 M5 PO; +FARXIGA10 MG PO; +HYGROTON 2525 MG/TAB PO; +IMODIUM 2MG CAPS2 MG PO; +LEVOCETIRIZINE D5 MG PO; +LOMOTIL TAB 01 UDTAB; +LYRICA225 MG PO; +MAGNESIUM400 M1 PO; +NORVASC 10MG10 MG PO; +OZEMPIC2 MG/0.75 SQ; +PREGABALIN225 MG PO; +PRISTIQ100 MG PO; +ROSUVASTATIN CA10 MG PO; +TOPCARE ASPIRIN81 M1 PO; +VIAGRA100 M1 PO; +ZESTRIL20 M1 PO
[2024-05-19 14:57] LABS: BASO # 0.01 K/mm3 (0.02-0.10); EOS % 3.1 % (0.0-4.0); HEMATOCRIT 29.8 % (42.0-52.0); HEMOGLOBIN 9.5 g/dL (13.5-18.0); LYMPH# 1.94 K/mm3 (1.50-4.00); MEAN CELL VOLUME 94 fl (78-100); MEAN CORPUSCULAR HEMOGLOBIN 30 pg (27-31); MEAN CORPUSCULAR HGB CONC 32 g/dL (33-37); MEAN PLATELET VOLUME 9.2 fl (7.4-10.4); MONO # 0.43 K/mm3 (0.20-0.80); PLATELET COUNT 243 K/mm3 (130-400); RED BLOOD COUNT 3.16 M/mm3 (4.20-5.60); RED CELL DISTRIBUTION WIDTH 13.2 % (11.5-14.5); WHITE BLOOD COUNT 6.5 K/mm3 (4.8-10.8)
[2024-05-19 14:59] LABS: ALBUMIN 3.5 g/dL (3.5-5.0)
[2024-05-19 15:00] LABS: CALCIUM 9.5 mg/dL (8.3-10.5)
[2024-05-19 15:02] LABS: TOTAL PROTEIN 7.3 g/dL (6.4-8.3)
[2024-05-19 15:03] LABS: TOTAL BILIRUBIN 0.2 mg/dL (0.2-1.2)
[2024-05-19 15:08] LABS: MAGNESIUM 1.79 mg/dL (1.60-2.60)
== END ==
LOC: LAB 14:31
PROVIDERS: Internal Medicine
DX: E11.9 Type 2 diabetes mellitus without complications (principal); I10 Essential (primary) hypertension

== ENCOUNTER → 2024-06-20 | Outpatient (CLI) | payer MEDICARE, MEDICAID ==
[~2024-06-20] VITALS: Ht 175.3 cm; Wt 109.8 kg
[2024-06-20 12:21] VITALS: BP 126/75
--- NOTE | 2024-06-20 12:51 | NUR ---
PATIENT HERE FOR WOUND CARE TO RIGHT GUILLORY. DRESSING REMOVED, MINIMAL DRAINAGE TO OPTILOCK. WOUND BEDS CLEASNED WITH HIBICLENSE AND DEBRISOFT LOLLI, JET LAVAGED WITH STERILE WATER AND DRIED WITH 4X4. PHOTOGRAPH OBTAINED AND MEASUREMENTS FOLLOWS: #1 SUPERIOR GUILLORY: 1.3 W X 1.2 L #2 LATERAL TO #1: 0.4 W X 0.5 L #3 MOST LATERAL: 0.4 W X 0.4 L #4 MEDIAL GUILLORY: 1.8 W X 0.6 L #5 INFERIOR TO #4: 1.3 W X 1.0 L #6 INFERIOR TO #5: 1.2 W X 1.5 L XEROFRM TO WOUND BED, COVERED WITH OPTILOCK X2 AND SOFT ROLL SECURED WITH MEDIPORE TAPE. PATIENT REQUESTS ASSESSMENT OF ABDOMEN FROM ACID SPLATTER FROM [facility]. Yanni GOFF APRN ASSESSED SCABBING, PLACED BACTRACIN AND COVERED WITH LARGE BANDAID. PATIENT CONTINUES TO REPORT RIGHT RIB PAIN, UPDATED DR. TRAORE TEAM REAGRDING COMPLAINT TO BE ADDRESSED WITH NEXT WEEKS APPOINTMENT. PATIENT TO RETURN THIS WEEK FOR NURSE VISIT FOR DRESSING CHANGES ON THURSDAY AND THURSDAY AT 2PM.
--- NOTE | 2024-06-20 14:05 | NUR ---
NEW RX SENT TO PHARMACY, UPDATED PATIENT. PATIENT VERBALIZED UNDERSTANDING.
== END ==
LOC: WOUND 12:07
DX: S81.801A Unspecified open wound, right lower leg, initial encounter (principal); X58.XXXA Exposure to other specified factors, initial encounter
CPT/HCPCS: 18897